=== PATIENT | female | born 1955 | race Caucasian/White ===

== ENCOUNTER → 2017-09-01 | Outpatient (CLI) | payer BC, SELFPAY | PROVIDERS: Visit Provider Internal Medicine Adolescent Medicine | DX: R53.83 Other fatigue (principal) | CPT/HCPCS: 36415; 80053; 82607; 84443; 85025 ==

== ENCOUNTER 2017-11-23 13:30 | Outpatient (RCR) | payer BC, SELFPAY | END 2017-11-23 13:31 | disposition home or self-care (01) | LOC: PT 13:30 | PROVIDERS: Family Provider Internal Medicine Adolescent Medicine; Visit Provider Orthopaedic Surgery Adult Reconstructive Orthopaedic Surgery | DX: Z96.642 Presence of left artificial hip joint (principal) | CPT/HCPCS: 97010; 97014; 97016; 97033; 97035; 97110; 97112; 97164; G0283 ==

== ENCOUNTER → 2017-12-18 10:31 | Outpatient (CLI) | payer BC, SELFPAY ==
--- NOTE | 2017-12-18 10:37 | MM_ITS ---
MM Dig screening mamm BI w/CAD CAD Screening ORDERING PHYSICIAN : Reji Dumont PATIENT AGE: 62 years GENDER: Female HISTORY of fibrocystic breast disease routine screening no hormones. No new complaints. Previous biopsy medial. munira areolar region left breast. COMPARISON: Outside studies have finally arrived from [facility]. Most useful: August 2015 mammogram & ultrasound studies. There is also a bilateral mammogram and breast ultrasound from April 2014 TECHNIQUE: Standard CC and MLO images were obtained. R2 CAD reviewed. FINDINGS:. Known fibrocystic breast disease Dense breast bilaterally which decreases sensitivity of mammography.. Multiple masses at left breast again seen . RIGHT BREAST: . Area A: Suggestion of vague 14 mm ovoid density at the deep right breast on MLO view. Possible cyst but not confirmed on other views.. There are other areas of vague nodularity, this dense breast. Recommend right breast ultrasound to further evaluate LEFT BREAST: Mass X: Bilobed mass, most certainly and likely cyst at 6 o'clock position. . (. 2015 outside studies identified large cyst same location at 6:00 which was subsequently aspirated, as evident on 2015 outside mammograms and ultrasound in available in PACS) On today's study the larger posterior component of this bilobed cyst measuring up to 2.5 cm x1.8 cm. (This larger cystic component is very slightly smaller than 2015 mammogram). The smaller component off the anterior aspect measuring up to 14 mm x 12 mm extending from anterior aspect of this bilobed mass. Mass Y: A new 1.5 cm well marginated probable cyst is seen today the superior left breast, 1 o'clock position ======IMPRESSION:====== 1. Bilateral Breast Ultrasound Recommended -to further evaluate densities both breast in this dense breasts.- With history of fibrocystic breast 2 ... LEFT BREAST. Most prominent findings on left : Mass X: Large bilobed mass inferior left breast 6 o'clock position. Most likely recurrence of cyst(s) seen on 2015 outside mammogram & ultrasound of which has. Mass Y: new 1.5 cm probable cyst superior breast 1 o'clock position 3.. RIGHT BREAST Possible 1.4 cm cyst deep right breast labeled area A. on MLO view . Questionable other areas of density, subtle nodularity in this dense breast would benefit from ultrasound survey as well BI-RADS Category: 0 Need Additional Imaging Evaluaiton RECOMMENDED FOLLOW-UP: IMM - IMMEDIATE FOLLOW-UP RECOMMENDED Bilateral breast ultrasound (A letter has been sent to the patient regarding results of the study.)
== END ==
PROVIDERS: Family Provider Internal Medicine Adolescent Medicine; PCP Internal Medicine Adolescent Medicine; Visit Provider Obstetrics & Gynecology Gynecology
DX: Z12.31 Encounter for screening mammogram for malignant neoplasm of breast (principal)
CPT/HCPCS: 77067

== ENCOUNTER → 2018-01-02 10:42 | Outpatient (CLI) | payer BC, SELFPAY ==
--- NOTE | 2018-01-02 10:49 | US_ITS ---
MM Dig mamm DX unilat RT CAD, US breast RT complete, US breast LT complete COMPARISON: 12/18/2017, 08/23/2015 INDICATION: Follow-up abnormal screening exam ORDERING PHYSICIAN: Madhuri Dominguez PATIENT AGE: 62 years TECHNIQUE: Spot compression views of the right breast along with bilateral breast ultrasound FINDINGS: Right breast: The asymmetric density in the deep upper aspect of the right breast appears to compress out as fibroglandular tissue. Right breast ultrasound: 4 mm complex cyst at 3:00. Small axillary nodes. No suspicious nodules Left breast ultrasound: 1.4 x 0.6 cm cyst at 2:00. Macro lobular 3 x 1.7 x 2 cm cyst at 6:00 corresponding to the bilobulated lesion on mammogram. No suspicious nodules evident. IMPRESSION: Bilateral breast cysts. No convincing evidence of malignancy BI-RADS Category: 2 Benign Finding(s) RECOMMENDED FOLLOW-UP: 1YR - 1 YEAR FOLLOW-UP (A letter has been sent to the patient regarding results of the study.)
== END ==
PROVIDERS: Family Provider Internal Medicine Adolescent Medicine; PCP Internal Medicine Adolescent Medicine; Visit Provider Nurse Practitioner Family
DX: R92.8 Other abnormal and inconclusive findings on diagnostic imaging of breast (principal)
CPT/HCPCS: 76641; 77065

== ENCOUNTER → 2018-04-05 08:20 | Outpatient (CLI) | payer BC, SELFPAY ==
[2018-04-05 11:01] LABS: Alanine Aminotransferase 37 U/L (12-78); Albumin Level 3.9 gm/dL (3.4-5.0); Albumin/Globulin Ratio 1.3 (1.1-1.8); Alkaline Phosphatase 117 U/L (46-116); Anion Gap 8.1 mEq/L (5-15); Aspartate Amino Transferase 18 U/L (15-37); Bilirubin,Total 0.4 mg/dL (0.2-1.0); Blood Urea Nitrogen 13 mg/dL (7-18); Calcium 9.5 mg/dL (8.5-10.1); Carbon Dioxide 30 mmol/L (21.0-32.0); Chloride 109 mmol/L (98-107); Chol/HDL Ratio 3.1 (1-3.5); Cholesterol 182 mg/dL (140-200); Creatinine,Serum 0.95 mg/dL (0.55-1.02); Estimated Glomerular Filt Rate 60 ml/min (>60); GFR (African American) 73 ML/MIN (>60); Globulin 2.9 gm/dl (1.3-3.2); Glucose 111 mg/dL (74-106); HDL Cholesterol 59 mg/dL (29-89); LDL Cholesterol 109 mg/dL (0-130); Potassium 4.1 mmoL/L (3.5-5.1); Sodium 143 mmol/L (136-145); Total Protein,Serum 6.8 gm/dL (6.4-8.2); Triglycerides 70 mg/dL (30-200); VLDL Cholesterol 14 mg/dL (0-40)
[2018-04-06 18:17] LABS: Vitamin D 25 Hydroxy 35.2 ng/mL (30.0-100.0)
== END ==
PROVIDERS: Visit Provider Nurse Practitioner Family
DX: E78.5 Hyperlipidemia, unspecified (principal); E55.9 Vitamin D deficiency, unspecified
CPT/HCPCS: 36415; 80053; 80061; 82652

== ENCOUNTER → 2018-10-08 09:02 | Outpatient (CLI) | payer BC, SELFPAY ==
[2018-10-08 09:17] LABS: Basophils % 0.8 % (0.1-2.0); Eosinophils # 0.1 K/mm3 (0.0-0.4); Hematocrit 41.6 % (37.0-47.0); Hemoglobin 13.6 g/dL (12.2-16.2); Lymphocytes # 2.1 K/mm3 (0.7-4.5); Lymphocytes % 46.1 % (10-50); Mean Corpuscular HGB Conc 32.6 g/dL (31.8-35.4); Mean Corpuscular Hemoglobin 30.7 pg (27.0-31.2); Mean Platelet Volume 6.6 fl (7.4-10.4); Monocytes # 0.3 K/mm3 (0.1-1.0); Monocytes % 6.7 % (1.7-9.3); Neutrophils # 1.9 K/mm3 (1.8-7.8); Neutrophils % 43.5 % (37.0-80.0); Platelet Count 245 K/mm3 (142-424); Red Blood Count 4.42 M/mm3 (4.20-5.40); Red Cell Distribution Width 12.9 % (11.5-17.5); White Blood Count 4.5 K/mm3 (4.8-10.8)
[2018-10-08 09:31] LABS: Hemoglobin A1C 5.7 % (0.0-7.0)
[2018-10-08 10:13] LABS: Alanine Aminotransferase 38 U/L (12-78); Albumin Level 3.9 gm/dL (3.4-5.0); Albumin/Globulin Ratio 1.4 (1.1-1.8); Alkaline Phosphatase 105 U/L (46-116); Aspartate Amino Transferase 20 U/L (15-37); Bilirubin,Total 0.7 mg/dL (0.2-1.0); Blood Urea Nitrogen 20 mg/dL (7-18); Calcium 9.3 mg/dL (8.5-10.1); Carbon Dioxide 27 mmol/L (21.0-32.0); Chloride 109 mmol/L (98-107); Chol/HDL Ratio 3.9 (1-3.5); Cholesterol 181 mg/dL (140-200); Estimated Glomerular Filt Rate 64 ml/min (>60); GFR (African American) 77 ML/MIN (>60); Globulin 2.7 gm/dl (1.3-3.2); Glucose 118 mg/dL (74-106); HDL Cholesterol 46 mg/dL (29-89); LDL Cholesterol 118 mg/dL (0-130); Sodium 144 mmol/L (136-145); Thyroid Stimulating Hormone 1.28 uIU/ml (0.358-3.740); Total Protein,Serum 6.6 gm/dL (6.4-8.2); Triglycerides 87 mg/dL (30-200); VLDL Cholesterol 17 mg/dL (0-40)
[2018-10-09 08:10] LABS: Vitamin D 25 Hydroxy 32.1 ng/mL (30.0-100.0)
[2018-10-09 16:17] LABS: Vitamin B12 1178 pg/mL (232-1245)
== END ==
PROVIDERS: Visit Provider Nurse Practitioner Family
DX: E78.5 Hyperlipidemia, unspecified (principal); E55.9 Vitamin D deficiency, unspecified; R53.81 Other malaise; R73.9 Hyperglycemia, unspecified
CPT/HCPCS: 36415; 80053; 80061; 82607; 82652; 83036; 84443; 85025

== ENCOUNTER → 2019-02-12 09:14 | Outpatient (CLI) | payer BC, SELFPAY ==
[2019-02-12 12:21] LABS: Hemoglobin A1C 5.2 % (0.0-7.0)
[2019-02-12 12:57] LABS: Alanine Aminotransferase 30 U/L (12-78); Albumin Level 4.1 gm/dL (3.4-5.0); Albumin/Globulin Ratio 1.5 (1.1-1.8); Alkaline Phosphatase 110 U/L (46-116); Anion Gap 14.6 mEq/L (5-15); Aspartate Amino Transferase 16 U/L (15-37); Bilirubin,Total 0.5 mg/dL (0.2-1.0); Blood Urea Nitrogen 18 mg/dL (7-18); Calcium 9.2 mg/dL (8.5-10.1); Carbon Dioxide 28 mmol/L (21.0-32.0); Chloride 106 mmol/L (98-107); Chol/HDL Ratio 2.8 (1-3.5); Cholesterol 158 mg/dL (140-200); Estimated Glomerular Filt Rate 56 ml/min (>60); GFR (African American) 68 ML/MIN (>60); Globulin 2.7 gm/dl (1.3-3.2); Glucose 108 mg/dL (74-106); HDL Cholesterol 57 mg/dL (29-89); LDL Cholesterol 90 mg/dL (0-130); Potassium 4.6 mmoL/L (3.5-5.1); Sodium 144 mmol/L (136-145); Total Protein,Serum 6.8 gm/dL (6.4-8.2); Triglycerides 54 mg/dL (30-200); VLDL Cholesterol 11 mg/dL (0-40)
== END ==
PROVIDERS: Visit Provider Nurse Practitioner Family
DX: E78.5 Hyperlipidemia, unspecified (principal); R73.9 Hyperglycemia, unspecified
CPT/HCPCS: 36415; 80053; 80061; 83036

== ENCOUNTER → 2019-06-21 08:32 | Outpatient (CLI) | payer OTHER, SELFPAY ==
--- NOTE | 2019-06-21 08:34 | MM_ITS ---
PROCEDURE: MM DIG SCREENING MAMM BI W/CAD CLINICAL INDICATION: screening There is no personal or family history of breast cancer. There has been a previous biopsy left breast for benign disease. COMPARISON: BC-MAMM DIAG BILAT DIG PNL from 08/25/2015 BU-US GUID CYST ASP PER LESION from 09/11/2015 [facility] MM Dig screening mamm BI w/CAD from 12/18/2017 DXRT MM Dig mamm DX unilat RT CAD from 01/02/2018 TECHNIQUE: Standard CC and MLO images were obtained. R2 CAD reviewed. FINDINGS: Prominent diffuse somewhat heterogenic fibroglandular densities are seen in each breast somewhat lessening the sensitivity of mammography. There is a spherical structure central portion left breast best seen on the CC projection likely the previously known cyst at this location which was aspirated. This most likely represents a shell of the previously aspirated cyst as it is much less dense than seen on the previous left mammogram 12/18/2017. There is no suspicious lesion and no suspicious there is a benign-appearing microcalcification right breast. IMPRESSION: Dense and heterogenic parenchymal pattern with no suspicious lesions seen. BI-RAD Category: 2 Benign Finding(s) FOLLOW-UP: 1YR 1 Year Follow-up (A letter has been sent to the patient regarding results of the study.) Dictated by: Dr. Joe Ansari MD 06/21/2019 11:[address] Joe Ansari MD in [place] 06/21/2019 11:33
== END ==
PROVIDERS: PCP Internal Medicine Adolescent Medicine; Referring Provider Nurse Practitioner Family; Visit Provider Nurse Practitioner Family
DX: Z12.31 Encounter for screening mammogram for malignant neoplasm of breast (principal)
CPT/HCPCS: 77067

== ENCOUNTER → 2019-07-20 08:56 | Outpatient (CLI) | payer OTHER, SELFPAY ==
[2019-07-20 11:37] LABS: Alanine Aminotransferase 24 U/L (12-78); Albumin Level 4.1 gm/dL (3.4-5.0); Albumin/Globulin Ratio 1.5 (1.1-1.8); Alkaline Phosphatase 113 U/L (46-116); Anion Gap 8.4 mEq/L (5-15); Aspartate Amino Transferase 17 U/L (15-37); Bilirubin,Total 0.5 mg/dL (0.2-1.0); Blood Urea Nitrogen 12 mg/dL (7-18); Calcium 9.1 mg/dL (8.5-10.1); Carbon Dioxide 31 mmol/L (21.0-32.0); Chloride 104 mmol/L (98-107); Chol/HDL Ratio 3.2 (1-3.5); Cholesterol 181 mg/dL (140-200); Creatinine,Serum 1.02 mg/dL (0.55-1.02); Estimated Glomerular Filt Rate 55 ml/min (>60); GFR (African American) 66 ML/MIN (>60); Globulin 2.8 gm/dl (1.3-3.2); Glucose 115 mg/dL (74-106); HDL Cholesterol 56 mg/dL (29-89); LDL Cholesterol 104 mg/dL (0-130); Potassium 4.4 mmoL/L (3.5-5.1); Sodium 139 mmol/L (136-145); Total Protein,Serum 6.9 gm/dL (6.4-8.2); Triglycerides 107 mg/dL (30-200); VLDL Cholesterol 21 mg/dL (0-40)
[2019-07-22 13:56] LABS: Vitamin D 25 Hydroxy 32.5 ng/mL (30.0-100.0)
== END ==
PROVIDERS: Visit Provider Nurse Practitioner Family
DX: E78.5 Hyperlipidemia, unspecified (principal); E55.9 Vitamin D deficiency, unspecified
CPT/HCPCS: 36415; 80053; 80061; 82652

== ENCOUNTER → 2020-06-23 07:50 | Outpatient (CLI) | payer OTHER, SELFPAY ==
--- NOTE | 2020-06-23 07:56 | MM_ITS ---
PROCEDURE: MM DIG SCREENING MAMM BI W/CAD Digital Breast Tomosynthesis Included CLINICAL INDICATION: SCREENING There is no personal or family history of breast cancer. There has been a previous biopsy left breast for benign disease. COMPARISON: MG [facility] MM Dig screening mamm BI w/CAD from 12/18/2017 MG DXRT MM Dig mamm DX unilat RT CAD from 01/02/2018 MG MM DIG SCREENING MAMM BI W/CAD from 06/21/2019 TECHNIQUE: Standard CC and MLO images and 3D Tomosynthesis was obtained. R2 CAD reviewed. FINDINGS: Again noted is a diffusely dense and heterogenic parenchymal pattern. Russel images are most helpful in this type of dense breast parenchyma. There has been some slight fatty involution of the breast parenchyma when compared to the 2 most recent studies. There is no new or suspicious lesion in either breast and no suspicious microcalcifications. There is a benign-appearing microcalcification right breast. IMPRESSION: Stable dense and heterogenic parenchymal pattern with no suspicious lesions seen BI-RAD Category: 2 Benign Finding(s) FOLLOW-UP: 1YR 1 Year Follow-up (A letter has been sent to the patient regarding results of the study.) Dictated by: Dr. Joe Ansari MD 06/23/2020 10:16 Dr. Joe Ansari MD in [place] 06/23/2020 10:16
== END ==
PROVIDERS: PCP Internal Medicine Adolescent Medicine; Visit Provider Nurse Practitioner Family
DX: Z12.31 Encounter for screening mammogram for malignant neoplasm of breast (principal)
CPT/HCPCS: 77063; 77067

== ENCOUNTER → 2020-10-04 09:19 | Outpatient (CLI) | payer OTHER, SELFPAY ==
[2020-10-04 10:35] LABS: Alanine Aminotransferase 23 U/L (12-78); Albumin Level 4.5 g/dl (3.5-5.0); Albumin/Globulin Ratio 1.7 (1.1-1.8); Alkaline Phosphatase 109 U/L (38-126); Anion Gap 14.4 mEq/L (5-15); Aspartate Amino Transferase 24 U/L (14-36); Bilirubin,Total 0.6 mg/dl (0.2-1.3); Blood Urea Nitrogen 13 mg/dl (7-17); Calcium 9.9 mg/dl (8.4-10.2); Carbon Dioxide 27 mmol/L (22.0-30.0); Chloride 105 mmol/L (98-107); Chol/HDL Ratio 3.5 (1-3.5); Cholesterol 180 mg/dl (140-200); Estimated Glomerular Filt Rate 56 ml/min (>60); GFR (African American) 68 ML/MIN (>60); Globulin 2.7 g/dL (1.3-3.2); Glucose 125 mg/dl (74-100); HDL Cholesterol 52 mg/dl (40-60); Potassium 4.4 mmoL/L (3.5-5.1); Sodium 142 mmol/L (136-145); Total Protein,Serum 7.2 g/dl (6.3-8.2); Triglycerides 185 mg/dl (30-150); VLDL Cholesterol 37 mg/dL (0-40)
[2020-10-04 10:46] LABS: Direct LDL Cholesterol 90.11 mg/dL (100-129)
[2020-10-04 10:49] LABS: 25-OH Vitamin D, Total 37.2 ng/mL (30-100)
== END ==
PROVIDERS: PCP Internal Medicine Adolescent Medicine; Visit Provider Nurse Practitioner Family
DX: E78.5 Hyperlipidemia, unspecified (principal); E55.9 Vitamin D deficiency, unspecified
CPT/HCPCS: 36415; 80053; 80061; 82306

== ENCOUNTER → 2020-10-05 10:54 | Outpatient (CLI) | payer OTHER, SELFPAY ==
[2020-10-05 11:51] LABS: Hemoglobin A1C 5.6 % (4.0-6.0)
== END ==
PROVIDERS: Visit Provider Pediatrics
DX: R73.9 Hyperglycemia, unspecified (principal)
CPT/HCPCS: 36415; 83036

== ENCOUNTER → 2020-11-10 11:08 | Outpatient (CLI) | payer OTHER, SELFPAY ==
[2020-11-10 12:05] LABS: Coronavirus 19 IgG Antibody Negative (Negative); Coronavirus 19 IgM Antibody Negative (Negative)
== END ==
PROVIDERS: Visit Provider Surgery
DX: Z01.818 Encounter for other preprocedural examination (principal); Z11.52 Encounter for screening for COVID-19; Z12.11 Encounter for screening for malignant neoplasm of colon
CPT/HCPCS: 36415; 86328

== ENCOUNTER 2020-11-12 09:30 | Day surgery (SDC) | payer OTHER, SELFPAY ==
[2020-11-10 14:09] VITALS: BMI 27.2
[2020-11-12 09:47] VITALS: BP 145/88; PULSE 97; RESP 18; TEMP 36.2; O2SAT 98
[2020-11-12 10:42] VITALS: O2SAT 98
--- NOTE | 2020-11-12 11:19 | HMH.SCOPE ---
- Procedure: Date: 11/12/20 Patient Date of :: 1955 Procedure Performed:: Colonoscopy with polypectomy Indications:: History of colon polyps Performing Provider:: Holden Yanes MD Referring Provider:: . Sedation:: Monitored anesthesia care Procedure:: After informed consent was obtained the patient was taken to the endoscopy suite. Sedation ensued after the patient was transferred to the left lateral decubitus position. Pulse, blood pressure, and oxygen saturation were monitored throughout the procedure. Digital rectal exam revealed no significant abnormality. The colonoscope was placed in position. The entire colon was evaluated. The colonoscope was carefully removed and the patient was transferred to recovery in stable condition. Please see findings and specimens below for detail. Findings:: Bowel preparation moderate to poor Hemorrhoidal tags Polyp at 60 cm Specimens:: Polyp at 60 cm (cold snare) Recommendations:: Timing of repeat colonoscopy is pending pathology but will likely be between 1-2 years secondary to limitations in bowel preparation. Complications:: Moderate to poor bowel preparation Estimated blood obtained (mL): 1
[2020-11-12 11:20] VITALS: BP 93/57; PULSE 87; RESP 18; TEMP 36.8; O2SAT 92
--- NOTE | 2020-11-12 11:23 | HMH.ANESCL ---
[facility] Anesthesia Checklist - Structural Data Admitted From: Home Planned Operative Procedure/s: colonoscopy Consent for Planned Operative Procedure(s) Verified: Yes - Airway Assessment C-Spine Mobility Assessed: Yes TMJ Mobility Assessed: Yes Dentition: Good Dentition - Neurological Assessment Level of Consciousness: Awake, Alert, Appropriate - Anesthesia Plan Anesthesia Risk discussed: Yes Anesthesia Plan: Verified ASA Class: II Anesthesia Type: MAC [facility] History I have reviewed the patient's past medical history: Yes Medical History: Denies:: Cancer, Diabetes Mellitus Type 1, Diabetes Mellitus Type 2, MRSA, Seizures *Have you ever received a pneumonia vaccine?: Yes *Have you received a flu vaccine this season?: Yes Anesthesia experience/problems:: none Laterality Cases: Left: Total Hip Replacement, Bilateral: Tonsillectomy Other Surgeries: Yes: Cholecystectomy, Colonoscopy, Colon Resection, Hysterectomy-Total, Tubal Ligation Amputation: No Fractures: No - *Social History Last grade of school completed: Some college Smoking Status: Former smoker Alcohol Intake: current Alcohol Intake Frequency:: a few times a week Substance Use Type: denies use *Occupational Status:: retired Housing: house Household Members: spouse *Travel in the last 8 weeks: None Family Hx:: No significant family history
[2020-11-12 11:35] VITALS: BP 92/48; PULSE 80; RESP 18; O2SAT 95
[2020-11-12 11:50] VITALS: BP 121/72; PULSE 77; RESP 18; O2SAT 97
== END 2020-11-12 11:51 | disposition home or self-care (01) ==
LOC: OUTP 09:31
PROVIDERS: PCP Internal Medicine Adolescent Medicine; Visit Provider Surgery
PROC: 0DJD8ZZ Inspection of Lower Intestinal Tract, Via Natural or Artificial Opening Endoscopic (ICD-10-PCS; CPT 45385; principal; 2020-11-12 10:30)
DX: Z12.11 Encounter for screening for malignant neoplasm of colon (principal); K63.5 Polyp of colon; Z86.010 Personal history of colon polyps; Z90.49 Acquired absence of other specified parts of digestive tract; Z87.19 Personal history of other diseases of the digestive system; Z88.8 Allergy status to other drugs, medicaments and biological substances; Z79.899 Other long term (current) drug therapy
CPT/HCPCS: 45385

== ENCOUNTER → 2021-02-10 16:41 | Outpatient (CLI) | payer OTHER, SELFPAY ==
--- NOTE | 2021-02-10 16:45 | XR_ITS ---
PROCEDURE: XR KNEE LT 4V CLINICAL INDICATION: LT ANTERIOR KNEE PAIN COMPARISON: No exams were available for comparison FINDINGS: No fracture or dislocation. No lytic or blastic change. There is normal mineralization. The joint spaces are well-preserved. No significant degenerative/arthritic changes. No erosive changes evident. Other findings:None. IMPRESSION: No acute findings. Dictated by: Jack Ulloa MD 02/10/2021 17:25 Jack Ulloa MD in [place] 02/10/2021 17:25
== END ==
PROVIDERS: PCP Nurse Practitioner Family; Visit Provider Nurse Practitioner Family
DX: M25.562 Pain in left knee (principal)
CPT/HCPCS: 73564

== ENCOUNTER → 2021-06-28 07:52 | Outpatient (CLI) | payer OTHER, SELFPAY ==
--- NOTE | 2021-06-28 07:57 | MM_ITS ---
PROCEDURE: MM DIG SCREENING MAMM BI W/CAD Digital Breast Tomosynthesis Included CLINICAL INDICATION: SCREENING There is no personal or family history of breast cancer. There has been a previous biopsy left breast for benign disease. COMPARISON: MG DXRT MM Dig mamm DX unilat RT CAD from 01/02/2018 MG MM DIG SCREENING MAMM BI W/CAD from 06/21/2019 MG MM DIG SCREENING MAMM BI W/CAD from 06/23/2020 TECHNIQUE: Standard CC and MLO images and 3D Tomosynthesis was obtained. R2 CAD reviewed. FINDINGS: Prominent diffuse heterogenic fibroglandular densities are seen throughout both breast and the findings are bilateral and symmetrical. Tomosynthesis imaging is very helpful in this type of dense breast parenchyma. There is a benign-appearing microcalcification right breast. There is no new or suspicious lesion in either breast and no suspicious microcalcifications. IMPRESSION: Diffusely dense parenchymal pattern with no suspicious lesions seen BI-RAD Category: 1 Negative FOLLOW-UP: 1YR 1 Year Follow-up (A letter has been sent to the patient regarding results of the study.) Dictated by: Dr. Joe Ansari MD 06/30/2021 11:00 Dr. Joe Ansari MD in [place] 06/30/2021 11:00
== END ==
PROVIDERS: PCP Nurse Practitioner Family; Visit Provider Nurse Practitioner Family
DX: Z12.31 Encounter for screening mammogram for malignant neoplasm of breast (principal)
CPT/HCPCS: 77063; 77067

== ENCOUNTER → 2021-08-16 06:04 | Outpatient (CLI) | payer OTHER, SELFPAY ==
--- NOTE | 2021-08-16 06:34 | CT_ITS ---
PROCEDURE: CT LUNG SCREENING CLINICAL INDICATION: LUNG SCREENING COMPARISON: No exams were available for comparison TECHNIQUE: The exam was performed on a GE Sevence Speed [address] scanner using 2.90 mGy CTDI. A low dose helical CT CHEST was performed on a multi-detector scanner. All CT scans at the facility use one or more dose reduction, viz: automated exposure control, ma/kV adjustment per patient size (including targeted exams where dose is matched to indication, i.e. head), or iterative reconstruction technique. The LDCT was performed in a facility that meets the criteria for the screening program. Data regarding this exam was submitted to ACR which is an approved registry. The order for this exam indicates that it came as a result of a lung cancer screening counseling shard decision-making visit that included all the elements required of such a visit including smoking cessation. The radiologist interpreting this exam meets the CMS criteria for the LDCT lung cancer screening program. The exam is reported using the Lung-RADS classification scale and reported to the ACR registry. NOTE: This study was performed for the specific purposes of lung cancer screening and is not an alternative to diagnostic chest CT. RADIATION DOSE: CTDI vol(CT dose Index-volume) = 2.90mG DLP (Dose Length Product) = 98.21 mGcm FINDINGS: COPD changes with scattered areas of scarring. There are a few scattered parenchymal and subpleural opacities 2 mm or less nonspecific. No suspicious nodules are apparent. There is mild bronchial thickening. No effusions or infiltrates. OTHER FINDINGS: No other pertinent findings evident. IMPRESSION: Lung-RADS Category 2 Benign Appearance or Behavior Follow-up: Continue annual screening with LDCT in 12 months Dictated by: Jack Ulloa MD 08/30/2021 10:18 Jack Ulloa MD in [place] 08/30/2021 10:18
== END ==
PROVIDERS: PCP Nurse Practitioner Family; Visit Provider Nurse Practitioner Family
DX: Z87.891 Personal history of nicotine dependence (principal); Z12.2 Encounter for screening for malignant neoplasm of respiratory organs
CPT/HCPCS: 71271

== ENCOUNTER → 2022-02-01 09:47 | Outpatient (CLI) | payer OTHER, SELFPAY ==
--- NOTE | 2022-02-01 | CA_ITS ---
APPROVED REPORT Exam: Exercise Treadmill Technologist: Avril Hernandez, Ht: 5 ft 10 in Wt: 190 lbs BSA: 2.04 m2 HR: 93 bpm BP: 138/77 mmHg Stress Test Details Test: Fazal HR Resting HR: 93 bpm Max Heart Rate (APMHR): 156.150174 bpm Max HR Achieved: 141 bpm Target HR (85% APMHR): 132.205658 bpm % of APMHR: 90.38 Recovery HR: 96 bpm BP Resting BP: 138/77 mmHg Max BP: 183/72 mmHg Recovery BP: 138.0/79.0 mmHg ECG Resting ECG: NSR 102bpm Clinical Exercise duration: 04:18 min Highest Stage Achieved: I Exercise capacity: 4.6 METs Stress ECG Conclusion Exercised 4:18 in Stage I of Fazal Protocol (stage I held to completion). Stopped due to dizziness. Max HR: 141 % of PM: 90% Max BP: 183/72 MET's: 4.6 Test stopped due to: Dizziness Symptoms: SOA/Dizziness. No CP. Arrhythmias/Ectopy: None ST-T Changes: W/in normal ST response to exercise. In late recovery there is 0.5 to 1mm of horizontal [address] depression inferiorly. Conclusion: Acute onset of dizziness during exercise. EKG changes in late recovery are suggestive dut not diagnostic of ischemia. GXT only (no imaging) Test Summary REST . . . . . . . Standing REST . . . . . . . Sitting REST 02:43 0.0 0.0 93 . 138/ 77 . . Stage 1 01:00 10.0 1.7 119 . . . . Stage 1 02:00 10.0 1.7 128 . . . . Stage 1 . . . . . . . Stage held Stage 1 03:00 10.0 1.7 134 . 150/ 70 . . Stage 1 04:00 10.0 1.7 139 . 150/ 70 . . Stage 1 . . . . . . . Stage resumed Stage 1 04:18 10.0 1.7 140 . 150/ 70 . Stop exercise at 04:18 RECOVERY 01:00 0.0 0.0 129 . . . . RECOVERY 02:00 0.0 0.0 105 . . . . RECOVERY 03:00 0.0 0.0 98 . 183/ 72 . . RECOVERY 04:00 0.0 0.0 93 . 153/ 73 . . RECOVERY 05:00 0.0 0.0 94 . 152/ 79 . . RECOVERY 06:00 0.0 0.0 93 . 151/ 75 . . RECOVERY 07:00 0.0 0.0 91 . 151/ 75 . . RECOVERY 08:00 0.0 0.0 95 . 138/ 79 . . RECOVERY 09:00 0.0 0.0 97 . 138/ 79 . . RECOVERY 09:24 0.0 0.0 98 . 138/ 79 . . Electronically signed by : Alex Antonio MD 02/01/2022 20:29:39
== END ==
PROVIDERS: PCP Nurse Practitioner Family; Visit Provider Internal Medicine Adolescent Medicine
DX: R06.09 Other forms of dyspnea (principal); R00.2 Palpitations; R42 Dizziness and giddiness
CPT/HCPCS: 93017; 93306

== ENCOUNTER → 2022-02-04 12:37 | Outpatient (CLI) | payer OTHER, SELFPAY ==
--- NOTE | 2022-02-04 12:51 | CA_ITS ---
APPROVED REPORT EXAM: Comprehensive 2D, Doppler, and color-flow Echocardiogram [employer] Intern[employer]: Jessica Gutierrez RVT Ht: 5 ft 10 in Wt: 190lbs BSA: 2.04 BP: 128/79 mmHg Indications: PALPS,MORALES,HLD TDS-LIMITED WINDOWS 2D Dimensions IVSd 0.49 cm F: 0.6-1.0 LVEF (Visual) 55.20 % PWd 0.53 cm F: 0.6 - 1.0 LA Volume 22.10 mL LVDd 3.41 cm F: 3.9 - 5.3 LA Volume Index 10.83 mL/m2 (M/F) 16-34 LVDs 2.46 cm F: 2.2 - 3.5 LVOT 2.04 cm (M/F) 1.5-2.5 M-Mode Dimensions LA Diam 3.28 cm (1.9-4.0) Ao Diam 2.63 cm (2.0-3.7) TAPSE 1.72 (<1.7) LV Diastology E Decel Time 200.00 (160-240 msec) E/A Ratio 0.9 MED E' 10.40 (< 7 cm/sec) E'/MED E' Ratio 8.30 (>14) LAT E' 11.00 (<10 cm/sec) E/LAT E' Ratio 7.85 (>14) Aortic Valve AO Peak GR. 5.70 mmHg Mitral Valve MV E Max Víctor. 86.00 (40-130 cm/s) MV A Velocity 98.00 (40-130 cm/s) E/A Ratio 0.89 MV Decel. Time 200.00 (160-240 ms) MV PHT 59.00 ms Pulmonary Valve PV Peak Velocity 51.00 (50-150 cm/s) Tricuspid Valve TR P. Velocity 212.00 cm/s RAP Estimate 10.00 mmHg RVSP 28.00 mmHg Left Ventricle Technically difficult study because of the patient factors and poor acoustic windows. Left atrium is mildly enlarged, left ventricle is normal size, mild concentric left ventricular hypertrophy, estimated ejection fraction 55% with no regional wall motion abnormality, Doppler evidence of impaired LV relaxation, without tissue Doppler evidence of raise left atrial pressure. Right Ventricle Right atrium and right ventricle are normal size and contractility. Aortic Valve Aortic valve is minimally thickened and fibrosed without aortic stenosis or aortic insufficiency. Mitral Valve Mitral valve is grossly normal, there is trace mitral regurgitation. Tricuspid Valve Tricuspid valve grossly normal, there is trace tricuspid regurgitation, tricuspid regurgitation jet velocity is inadequate for calculation of the right ventricular systolic pressure. Pulmonic Valve Pulmonic valve is poorly visualized. Great Vessels Aortic root is normal size. Inferior vena cava normal size with normal inspiratory collapse. Pericardium No significant pericardial effusion noted. Conclusion 1. Mildly enlarged left atrium, normal left ventricular size, mild concentric left ventricular hypertrophy, estimated ejection fraction 55% with no regional wall motion abnormality, Doppler evidence of impaired LV relaxation seen without tissue Doppler evidence of raise left atrial pressure. 2. Trace mitral and tricuspid regurgitation. 3. No significant pericardial effusion. 4. Inferior vena cava is normal size with normal inspiratory collapse. Electronically signed by : Alex Antonio MD 02/06/2022 06:35:12
== END ==
PROVIDERS: PCP Nurse Practitioner Family; Visit Provider Nurse Practitioner Family
DX: R06.09 Other forms of dyspnea (principal); R00.2 Palpitations
CPT/HCPCS: 93306

== ENCOUNTER → 2022-06-28 14:09 | Outpatient (POV) | payer MEDICARE, SELFPAY | PROVIDERS: Visit Provider Dermatology | DX: Z00.00 Encounter for general adult medical examination without abnormal findings (principal) ==

== ENCOUNTER → 2022-06-30 09:24 | Outpatient (CLI) | payer MEDICARE, SELFPAY ==
--- NOTE | 2022-06-30 09:28 | MM_ITS ---
PROCEDURE INFORMATION: Exam: MG Bilateral Screening 3D Mammography Exam date and time: 06/30/2022 9:25 AM Age: 67 years old Clinical indication: Screening examination TECHNIQUE: Imaging protocol: Bilateral Screening tomosynthesis and 2D mammography including computer-aided detection (CAD) when performed. COMPARISON: 1. MG MM DIG SCREENING MAMM BI W/CAD 06/28/2021 8:00 AM 2. MG MM DIG SCREENING MAMM BI W/CAD 06/23/2020 8:04 AM 3. MG MM DIG SCREENING MAMM BI W/CAD 06/21/2019 8:59 AM FINDINGS: MAMMOGRAPHY: Breast composition: The breasts are heterogeneously dense, which may obscure small masses. Mass: No suspicious masses. Architectural distortion: No suspicious distortion. Calcifications: No suspicious calcifications. Asymmetric density: None. Skin thickening: None. Axillary adenopathy: None. IMPRESSION: No mammographic evidence of malignancy. Annual screening is recommended unless otherwise clinically indicated. ASSESSMENT: BI-RADS Category 1: Negative
== END ==
PROVIDERS: PCP Nurse Practitioner Family; Visit Provider Nurse Practitioner Family
DX: Z12.31 Encounter for screening mammogram for malignant neoplasm of breast (principal)
CPT/HCPCS: 77063; 77067

== ENCOUNTER → 2022-07-04 08:39 | Outpatient (CLI) | payer MEDICARE, SELFPAY ==
--- NOTE | 2022-07-04 09:10 | XR_ITS ---
FINAL REPORT TECHNIQUE: Bone densitometry calculations of the lumbar spine, forearm and hip were obtained. CLINICAL HISTORY: . post menopausal screening FINDINGS: DEXA BONE DENSITY AXIAL SKELETON Using L1-4, the bone mineral density of the spine is 1.093 g/cm2, corresponding to T-score of 0.4. Normal bone mineral density. Using the right hip, the bone mineral density of the femoral neck is 0.735 g/cm2, corresponding to a T-score of -1.0. Normal bone mineral density. Using the left forearm, the bone mineral density of the distal 1/3 is 0.611 g/cm2, corresponding to a T-score of -1.4. Osteopenia. NOTE: T-score: Standard deviation compared with peak bone mass of young adult mean. *Following the recommendations of the International Society of Bone densitometry, classification of hip BMD is based on the lower of two T-scores; total hip or femoral neck. IMPRESSION: Diminished bone mineral density of the left forearm consistent with osteopenia. Normal bone mineral density of the lumbar spine and right hip. Reviewed, Interpreted and Dictated by Cody Kramer III, MD Transcribed by Cris Cruz Authenticated and [facility]
== END ==
PROVIDERS: PCP Nurse Practitioner Family; Visit Provider Nurse Practitioner Family
DX: Z78.0 Asymptomatic menopausal state (principal)
CPT/HCPCS: 77080

== ENCOUNTER → 2022-08-09 10:45 | Outpatient (POV) | payer MEDICARE, SELFPAY | PROVIDERS: Visit Provider Dermatology | DX: Z00.00 Encounter for general adult medical examination without abnormal findings (principal) ==

== ENCOUNTER 2022-12-08 08:55 | Day surgery (SDC) | payer MEDICARE, SELFPAY ==
[2022-11-29 14:25] VITALS: BMI 28.7
[2022-12-08 09:15] VITALS: BP 161/92; PULSE 96; RESP 18; TEMP 36.4; O2SAT 96
[2022-12-08 09:47] VITALS: O2SAT 98
--- NOTE | 2022-12-08 10:05 | HMH.SCOPE ---
Procedure: Date: 12/08/22 Patient Date of :: 1955 Procedure Performed:: Screening colonoscopy Indications:: History of polyps Performing Provider:: Murray Boogie MD Referring Provider:: Gianfranco Wynn MD Sedation:: Propofol Procedure:: After placing the patient in the left lateral decubitus position, the colonoscopy was gently inserted into the rectum and under direct visualization advanced to the cecum which was identified by transillumination in the right lower quadrant, identification of the ileocecal valve, appendiceal orifice, and cecal strap. Color, texture, mucosa, and anatomy of the colon were carefully examined with the scope. Findings:: Anal canal: normal Rectum: normal Sigmoid colon: normal without polyps or inflammatory changes Descending colon: normal without polyps or inflammatory changes Splenic flexure: normal Transverse colon: normal without polyps or inflammatory changes Hepatic flexure: normal Ascending colon: normal without polyps or inflammatory changes Cecum: normal Terminal ileum: not visualized Impression: Normal colonoscopy Recommendations:: Follow up examination in about FIVE years or so, sooner if clinically indicated. Complications:: None Estimated blood obtained (mL): 0
[2022-12-08 10:10] VITALS: BP 135/81; PULSE 86; RESP 16; TEMP 36.1; O2SAT 90
[2022-12-08 10:20] VITALS: BP 117/73; PULSE 83; RESP 18; O2SAT 92
[2022-12-08 10:30] VITALS: BP 119/59; PULSE 86; RESP 18; O2SAT 94
== END 2022-12-08 10:52 | disposition home or self-care (01) ==
PROVIDERS: PCP Nurse Practitioner Family; Visit Provider Internal Medicine Gastroenterology
PROC: 0DJD8ZZ Inspection of Lower Intestinal Tract, Via Natural or Artificial Opening Endoscopic (ICD-10-PCS; CPT 45378; principal; 2022-12-08 10:00)
DX: Z12.11 Encounter for screening for malignant neoplasm of colon (principal); Z86.010 Personal history of colon polyps; Z79.899 Other long term (current) drug therapy
CPT/HCPCS: G0105

== ENCOUNTER → 2023-06-06 09:23 | Outpatient (POV) | payer SELFPAY | PROVIDERS: Visit Provider Dermatology | DX: Z00.00 Encounter for general adult medical examination without abnormal findings (principal) ==

== ENCOUNTER → 2023-07-03 10:09 | Outpatient (CLI) | payer MEDICARE, SELFPAY ==
--- NOTE | 2023-07-03 10:13 | MM_ITS ---
PROCEDURE INFORMATION: Exam: MG Bilateral Screening 3D Mammography Exam date and time: 07/03/2023 10:01 AM Age: 68 years old Clinical indication: Screening examination TECHNIQUE: Imaging protocol: Bilateral Screening tomosynthesis and 2D mammography including computer-aided detection (CAD) when performed. COMPARISON: 1. MG MM DIG SCREENING MAMM BI W/CAD 06/30/2022 9:25 AM 2. MG MM DIG SCREENING MAMM BI W/CAD 06/28/2021 8:00 AM FINDINGS: MAMMOGRAPHY: Breast composition: The breasts are heterogeneously dense, which may obscure small masses. Mass: 0.8 cm ovoid mass in the posterior third of the left central breast slightly superior and slightly lateral to the nipple 1 Architectural distortion: None. Calcifications: No suspicious calcifications. Asymmetric density: None. Skin thickening: None. Axillary adenopathy: None. IMPRESSION: Patient to be recalled for left breast ultrasound for further evaluation of a left breast mass. ASSESSMENT: BI-RADS Category 0: Incomplete- Need Additional Imaging Evaluation and/or Prior Mammograms for Comparison
== END ==
PROVIDERS: PCP Nurse Practitioner Family; Visit Provider Nurse Practitioner Family
DX: Z12.31 Encounter for screening mammogram for malignant neoplasm of breast (principal)
CPT/HCPCS: 77063; 77067

== ENCOUNTER → 2023-07-18 13:15 | Outpatient (CLI) | payer MEDICARE, OTHER, SELFPAY ==
--- NOTE | 2023-07-18 13:21 | US_ITS ---
PROCEDURE INFORMATION: Exam: US Left Breast, Complete Exam date and time: 07/18/2023 1:31 PM Age: 68 years old Clinical indication: Patient recalled for further evaluation of a left breast mass TECHNIQUE: Imaging protocol: Complete ultrasound of all four quadrants of the left breast and the retroareolar regions, including ultrasound of the axilla when performed. COMPARISON: BREASTLT US breast LT complete 01/02/2018 11:08 AM FINDINGS: Breast: Sonographic images of the left breast including the retroareolar region, all 4 quadrants and the axilla do not demonstrate any solid masses. Few scattered subcentimeter cysts are present. The 0.8 cm mass in the deep left central breast slightly superior and slightly lateral to the nipple is not seen on sonography. The mass is well-circumscribed on mammography and probably benign in etiology. No architectural distortion or acoustical shadowing. No skin thickening or axillary adenopathy. IMPRESSION: Probably benign mammographically visible subcentimeter mass in the deep left central breast. A six-month follow-up diagnostic left mammogram is recommended to ensure stability over time ASSESSMENT: BI-RADS Category 3: Probably benign
== END ==
PROVIDERS: PCP Nurse Practitioner Family; Visit Provider Nurse Practitioner Family
DX: R92.8 Other abnormal and inconclusive findings on diagnostic imaging of breast (principal)
CPT/HCPCS: 76641

== ENCOUNTER → 2023-07-19 20:22 | Outpatient (CLI) | payer MEDICARE, OTHER, SELFPAY | PROVIDERS: PCP Nurse Practitioner Family; Visit Provider Nurse Practitioner Family | DX: G47.31 Primary central sleep apnea (principal) | CPT/HCPCS: 95811 ==

== ENCOUNTER → 2023-08-18 15:08 | Outpatient (CLI) | payer MEDICARE, SELFPAY ==
[2023-08-18 16:19] LABS: Basophils # 0.1 K/mm3 (0-0.2); Basophils % 1.2 % (0.1-2.0); Eosinophils # 0.1 K/mm3 (0.0-0.4); Eosinophils % 1.4 % (0.1-12.0); Hematocrit 41.3 % (37.0-47.0); Lymphocytes # 2.6 K/mm3 (0.7-4.5); Lymphocytes % 40.2 % (10-50); Mean Corpuscular HGB Conc 33.8 g/dL (31.8-35.4); Mean Corpuscular Hemoglobin 30.4 pg (27.0-31.2); Mean Corpuscular Volume 89.8 fl (81-99); Mean Platelet Volume 8.4 fl (7.4-10.4); Monocytes # 0.5 K/mm3 (0.1-1.0); Monocytes % 7.8 % (1.7-9.3); Neutrophils # 3.2 K/mm3 (1.8-7.8); Neutrophils % 49.4 % (37.0-80.0); Platelet Count 276 K/mm3 (142-424); Red Cell Distribution Width 12.9 % (11.5-17.5); White Blood Count 6.4 K/mm3 (4.8-10.8)
[2023-08-18 17:03] LABS: Iron 77 ug/dL (37-170)
[2023-08-18 17:30] LABS: Total Iron Binding Capacity 281 ug/dL (265-497)
[2023-08-18 17:38] LABS: Ferritin 98.6 ng/ml (11.1-264)
== END ==
PROVIDERS: PCP Nurse Practitioner Family; Visit Provider Nurse Practitioner Family
DX: E83.10 Disorder of iron metabolism, unspecified (principal); G47.61 Periodic limb movement disorder; G47.33 Obstructive sleep apnea (adult) (pediatric)
CPT/HCPCS: 36415; 82728; 83540; 83550; 85025

== ENCOUNTER 2023-10-27 06:39 | Outpatient (CLI) | payer MEDICARE, OTHER, SELFPAY ==
--- NOTE | 2023-10-27 06:50 | CT_ITS ---
FINAL REPORT CLINICAL HISTORY: HX OF NICOTINE DEPENDENCE FORMER SMOKER PT QUIT 12 YEAR AGO, 1.5PPD X30 YEARS WHEN SMOKING FINDINGS: CTDI vol (mGy): 2.90 DLP: 89.[address] images of the chest were obtained using the low-dose protocol for screening. There is no evidence of mediastinal or hilar mass or adenopathy. No axillary mass or adenopathy is identified. On the lung window images, no pulmonary mass or suspicious nodule is identified. There is mild chronic scarring in the posterior lung bases. IMPRESSION: Lung RADS category 1 . Recommend 12 month followup low-dose CT for further evaluation. Reviewed, Interpreted and Dictated by Dionicio Navarro MD Transcribed by Luisana Michael Authenticated and [facility]
== END 2023-10-27 23:59 ==
PROVIDERS: PCP Nurse Practitioner Family; Visit Provider Nurse Practitioner Family
DX: Z87.891 Personal history of nicotine dependence (principal)
CPT/HCPCS: 71271

== ENCOUNTER → 2023-11-01 20:16 | Outpatient (CLI) | payer MEDICARE, SELFPAY | PROVIDERS: PCP Nurse Practitioner Family; Visit Provider Nurse Practitioner Family | DX: G47.33 Obstructive sleep apnea (adult) (pediatric) (principal); G47.31 Primary central sleep apnea; G47.61 Periodic limb movement disorder | CPT/HCPCS: 95811 ==

== ENCOUNTER 2023-12-29 14:16 | Outpatient (CLI) | payer MEDICARE, SELFPAY ==
--- NOTE | 2023-12-29 14:18 | MM_ITS ---
PROCEDURE INFORMATION: Exam: MG Left Diagnostic Breast Tomosynthesis Exam date and time: 12/29/2023 2:28 PM Age: 68 years old Clinical indication: Short-term radiographic followup; Left breast; mass TECHNIQUE: Imaging protocol: Left Diagnostic tomosynthesis and 2D mammography including computer-aided detection (CAD) when performed. Unilateral or bilateral exam. COMPARISON: 1. MG MM DIG SCREENING MAMM BI W/CAD 07/03/2023 10:01 AM 2. MG MM DIG SCREENING MAMM BI W/CAD 06/30/2022 9:25 AM FINDINGS: MAMMOGRAPHY: Breast composition: The breasts are heterogeneously dense, which may obscure small masses. Breast mammogram findings: There is no stellate mass, architectural distortion or suspicious microcalcifications to suggest malignancy. Stable 0.8 cm mass in the deep left central breast. This is best seen on tomographic images. No skin thickening or axillary adenopathy. IMPRESSION: Stable probably benign left central breast mass compared to prior mammogram dated 07/03/2023. A six-month follow-up diagnostic bilateral mammogram is recommended for continued close surveillance of the left-sided mass as well as part of an annual screening schedule ASSESSMENT: BI-RADS Category 3: Probably benign.
== END 2023-12-29 23:59 | disposition home or self-care (01) ==
LOC: RAD 14:16
PROVIDERS: PCP Nurse Practitioner Family; Visit Provider Nurse Practitioner Family
DX: R92.8 Other abnormal and inconclusive findings on diagnostic imaging of breast (principal)
CPT/HCPCS: 77061; 77065; G0279

== ENCOUNTER 2024-03-20 08:58 | Outpatient (CLI) | payer MEDICARE, OTHER, SELFPAY ==
[2024-03-20 09:22] LABS: Basophils # 0.1 K/mm3 (0-0.2); Basophils % 1.5 % (0.1-2.0); Eosinophils # 0.2 K/mm3 (0.0-0.4); Eosinophils % 2.4 % (0.1-12.0); Hematocrit 40.5 % (37.0-47.0); Hemoglobin 13.5 g/dL (12.2-16.2); Lymphocytes # 1.9 K/mm3 (0.7-4.5); Lymphocytes % 30.3 % (10-50); Mean Corpuscular HGB Conc 33.3 g/dL (31.8-35.4); Mean Corpuscular Hemoglobin 30.7 pg (27.0-31.2); Mean Corpuscular Volume 92.3 fl (81-99); Mean Platelet Volume 7.6 fl (7.4-10.4); Monocytes # 0.4 K/mm3 (0.1-1.0); Monocytes % 6.2 % (1.7-9.3); Neutrophils # 3.8 K/mm3 (1.8-7.8); Neutrophils % 59.5 % (37.0-80.0); Platelet Count 284 K/mm3 (142-424); Red Blood Count 4.38 M/mm3 (4.20-5.40); Red Cell Distribution Width 13.2 % (11.5-17.5); White Blood Count 6.3 K/mm3 (4.8-10.8)
[2024-03-20 10:09] LABS: Alanine Aminotransferase 45 U/L (12-78); Albumin Level 4.2 g/dl (3.5-5.0); Albumin/Globulin Ratio 1.8 (1.1-1.8); Alkaline Phosphatase 96 U/L (38-126); Aspartate Amino Transferase 35 U/L (14-36); Bilirubin,Total 0.7 mg/dl (0.2-1.3); Blood Urea Nitrogen 14 mg/dl (7-17); Calcium 9.6 mg/dl (8.4-10.2); Carbon Dioxide 30 mmol/L (22.0-30.0); Chloride 105 mmol/L (98-107); Chol/HDL Ratio 3.9 (1-3.5); Cholesterol 166 mg/dl (140-200); Estimated Glomerular Filt Rate 63 ml/min (>60); GFR (African American) 76 ML/MIN (>60); Globulin 2.3 g/dL (1.3-3.2); Glucose 123 mg/dl (74-100); HDL Cholesterol 43 mg/dl (40-60); Sodium 141 mmol/L (136-145); Total Protein,Serum 6.5 g/dl (6.3-8.2); Triglycerides 136 mg/dl (30-150); VLDL Cholesterol 27 mg/dL (0-40)
[2024-03-20 10:20] LABS: Direct LDL Cholesterol 95.68 mg/dL (100-129)
[2024-03-20 11:22] LABS: Hemoglobin A1C 5.9 % (4.0-6.0)
== END 2024-03-20 23:59 | disposition home or self-care (01) ==
LOC: LAB 09:00
PROVIDERS: PCP Nurse Practitioner Family; Visit Provider Nurse Practitioner Family
DX: E78.5 Hyperlipidemia, unspecified (principal); R73.01 Impaired fasting glucose; R19.7 Diarrhea, unspecified
CPT/HCPCS: 36415; 80053; 80061; 83036; 85025

== ENCOUNTER 2024-06-18 13:19 | Outpatient (CLI) | payer MEDICARE, OTHER, SELFPAY ==
--- NOTE | 2024-06-18 13:22 | MM_ITS ---
PROCEDURE INFORMATION: Exam: MG Bilateral Diagnostic Breast Tomosynthesis Exam date and time: 06/18/2024 1:09 PM Age: 69 years old Clinical indication: Follow-up from prior for probably benign left breast mass. TECHNIQUE: Imaging protocol: Bilateral Diagnostic tomosynthesis and 2D mammography including computer-aided detection (CAD) when performed. Unilateral or bilateral exam. COMPARISON: 1. MG MM DIG MAMM DX UNILAT LT CAD 12/29/2023 2:28 PM 2. MG MM DIG SCREENING MAMM BI W/CAD 07/03/2023 10:01 AM FINDINGS: MAMMOGRAPHY: Breast composition: The breasts are heterogeneously dense, which may obscure small masses. Breast mammogram findings: Bilateral full field CC and MLO as well as left breast spot compression tomosynthesis views were obtained. Mass: Stable circumscribed 0.8 cm mass in the central left breast at posterior depth. Architectural distortion: None. Calcifications: No suspicious calcifications. Asymmetric density: None. Skin thickening: None. Axillary adenopathy: None. IMPRESSION: Left breast mass is stable since 07/03/2023 and probably benign. Recommend six-month follow-up left breast diagnostic mammogram to ensure stability. ASSESSMENT: BI-RADS Category 3: Probably benign.
== END 2024-06-18 23:59 | disposition home or self-care (01) ==
LOC: RAD 13:19
PROVIDERS: PCP Nurse Practitioner Family; Visit Provider Nurse Practitioner Family
DX: R92.8 Other abnormal and inconclusive findings on diagnostic imaging of breast (principal); N63.25 Unspecified lump in the left breast, overlapping quadrants
CPT/HCPCS: 77062; 77066; G0279

== ENCOUNTER 2024-12-02 10:51 | Emergency (ER) | payer MEDICARE, OTHER, SELFPAY ==
[2024-12-02 11:09] VITALS: BP 153/94; PULSE 95; RESP 18; O2SAT 96; BMI 29.4
[2024-12-02] MEDS: TET/DIPHTH/PERT-ADULT 0.5ML SYRINGE 0.5 ML IM (11:23)
[2024-12-02] MEDS: AMOXICILLIN/CLAVULANATE POTASSIUM 875/125MG TABLET 1 EACH PO (11:24)
[2024-12-02] MEDS: LIDOCAINE 1% 10ML MDV 10 ML IJ (11:27)
--- NOTE | 2024-12-02 12:14 | ED_ITS ---
Discharge Plan Disposition Patient Disposition: Home, Self-Care Prescriptions Prescriptions: New amoxicillin-pot clavulanate 875-125 mg tablet 1 tab PO BID 10 Days Qty: 20 0RF No Action alprazolam 0.5 mg tablet 0.5 mg PO DAILY paroxetine HCl 20 mg tablet 20 tab PO DAILY atorvastatin 20 mg tablet 20 mg PO HS bupropion HCl 300 mg tablet extended release 24 hr 300 mg PO DAILY omeprazole 20 mg capsule,delayed release(DR/EC) 20 mg PO DAILY Referrals Follow up/Referrals: Madhuri Dominguez APRN [Primary Care Provider] - See instructions Activity Restrictions/Add. Instructions Additional Instructions/Restrictions: Call your family doctor to establish care for this visit to the emergency department and schedule follow-up within 48 hours to ensure improvement. If you have any worsening of your condition or any other concerning signs or symptoms, return to the emergency department or your primary care doctor for further evaluation. Augmentin twice daily for 10 days. Stitches out in 7 to 10 days. Soak in warm to hot salt water baths to encourage drainage from open portion of wound Clinical Impressions Clinical Impression: Cellulitis of finger of right hand, Dog bite Instructions Patient Instructions: Animal Bites Print Language Print Language: Filipino Discharge ED Provider: Donald May General Adult HPI General Chief complaint: Animal Bite Stated complaint: dog bite on right middle finger Time Seen by Provider: 12/02/24 11:02 Mode of Arrival: Ambulatory Description of Symptoms (Recalled from ER Triage Doc. by RN): PT STATES THE NIGHT BEFORE LAST SHE WAS PLAYING WITH HER DOG AND WAS GOING TO RETRIEVE A TOY AND HER DOG BIT HER RIGHT MIDDLE FINGER. PTS RIGHT MIDDLE FINGER IS SWOLLEN. PT STATES THAT HER DOG IS UP TO DATE ON VACCINATIONS. History of Present Illness HPI narrative: Please note that above description of symptoms, in this electronic medical record under categorization of recalled from ER triage doctor by RN are reflective of an initial nursing assessment, however, is not reflective of my full history and physical exam that was personally taken and clarified. Consequentially, this preceding description of symptoms, which may include the patient's categorized chief complaint in the EMR, do not reflect my personal c linical impression, and the ultimate description of history of present illness and patient stated complaints should be deferred to this section of the note. Unless stated otherwise or congruent with this section of the note, additional signs, symptoms, or incongruence should be interpreted as inaccurate with my clinical impression. Related Data Home Medications ?Medication ?Instructions ?Recorded ?Confirmed alprazolam 0.5 mg tablet 0.5 mg PO DAILY Anxiety 11/04/20 12/02/24 atorvastatin 20 mg tablet 20 mg PO HS High cholesterol 11/04/20 12/02/24 bupropion HCl 300 mg 24 hr tablet, 300 mg PO DAILY Depression 11/04/20 12/02/24 extended release paroxetine HCl 20 mg tablet 20 tab PO DAILY Depression 11/04/20 12/02/24 omeprazole 20 mg capsule,delayed 20 mg PO DAILY Reflux/Acid reflux 11/03/22 12/02/24 release Previous Rx's ?Medication ?Instructions ?Recorded amoxicillin 875 mg-potassium 1 tab PO BID 10 days #20 tabs 12/02/24 clavulanate 125 mg tablet Allergies Allergy/AdvReac Type Severity Reaction Status Date / Time tetracycline (TETRACYCLINE) Allergy Intermediate I-HIVES Verified 12/02/24 11:41 [facility] Disclaimer: The information contained in this section may have been updated after the patient was seen, as this information can be updated by other users. Medical History Cataract Obstructive sleep apnea (adult) (pediatric) Depression Degenerative disc disease Hyperlipidemia Migraine Surgical History History of colon resection History of tonsillectomy History of hysterectomy History of colonoscopy History of cholecystectomy Family History Other Alcoholism Cancer Coronary artery disease Diabetes Family history of Alzheimer's disease Hypertension Kidney disease Stroke Social History (Updated 12/02/24 @ 11:43 by Lorna Champion RN) Smoking Status: Never smoker how long ago did patient quit smokin yrs alcohol intake: current alcohol intake frequency: a few times a week substance use type: denies use current occupational status: retired Travel in the last 8 weeks: None household members: spouse housing: house marital status: education level: college caffeine: Yes special hetal needs: No agree to transfusion: No do you feel safe at home: Yes victim of physical abuse: No victim of emotional abuse: No victim of sexual abuse: No would you like helpful sources: No Have you lived/traveled outside US in past 30 days?: No Contact w/someone who lives/traveled outside US past 30 days?: No Exposure to someone with infectious disease in past 14 days?: No Do you have a fever (greater than 100.4 F or 38 C)?: No Have you tested positive for COVID-19: No Exposed to someone with COVID-19 in past 14 days?: No Do you have a sore throat?: No Do you have a cough?: No Do you have any weakness?: No Do you have any diarrhea?: No Are you experiencing any unusual bleeding?: No Do you have any muscle aches/pain?: No Do you have any abdominal pain?: No Are you experiencing loss of taste or smell?: No Other Medical History Have you received the Flu Vaccine for this season: Yes Have you received the Pneumonia Vaccine: Yes ROS Obtained: Yes All systems reviewed & no additional complaints except as documented Physical Exam General General appearance: alert Head Head exam: atraumatic and normocephalic Eye Eye exam: Present normal appearance, PERRL and EOMI Neck Neck exam: Present normal inspection, full ROM and trachea midline Respiratory Respiratory exam: Absent respiratory distress, wheezes, stridor, accessory muscle use or prolonged expiratory phase Cardiovascular Cardiovascular exam: Present other (Pulses equal symmetric in upper and lower extremities) Abdominal Exam Abdominal exam: Present soft; Absent distention, tenderness or pulsatile mass Extremities Exam Extremities exam: Absent edema Neurological Exam Neurological exam: Present alert, oriented X3 and CN II-XII intact; Absent motor sensory deficit Skin Skin exam: Present warm and dry; Absent diaphoresis or erythema Medical Decision Making Medical Records Medical records reviewed: Yes I reviewed the patient's medical records. Screening: Per USPSTF and CDC recommendations, given the prevalence of disease in our region, it is our hospital?s policy to screen for HIV and viral Hepatitis for all patients aged 18 and over and those with ongoing risk factors. Sergio Inquiry Pt receiving controlled substance: No Sergio was queried for this patient: No Vital Signs: 12/02/24 11:09 Pulse Rate [Left] 95 H Respiratory Rate 18 Blood Pressure [Left Arm] 153/94 H Blood Pressure Mean [Left Arm] 113 Blood Pressure Source [Left Arm] Automatic Cuff Blood Pressure Position [Left Arm] Supine 02 Sat by Pulse Oximetry 96 Oxygen Delivery Method Room Air Orders (Tests/Meds): ED MEDICATIONS Discontinued Medications Generic Name Dose Route Start Last Admin Trade Name Freq PRN Reason Stop Dose Admin Amoxicillin/Clavulanate Potassium 1 each 12/02/24 11:18 12/02/24 11:24 Amoxicillin/Clavulanate Potassium 875/125mg Tablet PO 12/02/24 11:19 1 each ONCE ONE Administration Lidocaine HCl 10 ml 12/02/24 11:12 12/02/24 11:27 Lidocaine 1% 10ml Mdv IJ 12/02/24 11:13 10 ml ONCE ONE Administration Tetanus/Reduced Diphtheria/Acell Pertussis 0.5 ml 12/02/24 11:18 12/02/24 11:23 Tet/Diphth/Pert-Adult 0.5ml Syringe IM 12/02/24 11:19 0.5 ml .ONCE ONE Administration Medical Decision Narrative: 69-year-old female presenting with injury to her right middle finger. She states that her dog bit her 2 days prior to this. Tried to clean it out for multiple minutes under the faucet, since that time its become progressively red and swollen. No fevers or chills or systemic signs or symptoms. History was obtained via conversation with patient. On arrival, patient hemodynamically stable, alert, oriented x4, appropriate, GCS 15, moving all extremities spontaneously, pupils equal and reactive to light. Full physical exam performed and significant for clinically well-appearing female. She has a 2 cm laceration on the distal phalanx of her right middle finger on the palmar aspect. Subcut aneous tissue. No obvious purulence. The finger itself is swollen and red, only on the ventral/palmar aspect. Not fusiform. No tenderness along the extensor or flexor tendons. Not held in flexion and no pain with passive extension. Differential includes laceration, cellulitis, less likely to be flexor tenosynovitis, deep space infection, among others. X-ray considered, but not deemed necessary. Patient irrigated extensively, soaked in chlorhexidine/saline. She was given Tdap, first dose of Augmentin. Numbed up with 1% lidocaine without epinephrine and laceration was repaired. Given patient presentation, workup, history, this most likely represents cellulitis of the digit after dog bite. Very close return precautions were discussed, patient voiced understanding. Because patient at baseline without signs or symptoms of clinical decompensation, deemed appropriate for discharge. Results were relayed to patient who voiced understanding and were agreeable to outpatient management and follow up. I discussed my clinical impression with patient and answered all questions. At this time, the evidence for any other entities in the differential is insufficient to warrant any further testing or ED observation. This was explained as well. Advisory was given that persistent or worsening symptoms require further evaluation. I confirmed the understanding of this discussion. Cardiac/Vascular Sonographer disclaimer Much of this encounter note is an electronic sales effectiveness manager spoken language to printed text. Electronic sales effectiveness manager of the spoken language may permit errors. Although I have reviewed the note, some errors may still exist. Procedures Laceration Laceration 1: Site: finger Side (If applicable): right Size (cm): 2 Description: linear and irregular Depth: involves subcutaneous layer Local Anesthetic: lidocaine 1% Amount of anesthesia used (mL): 5 Pre-repair: wound explored and irrigated extensively Skin layer closed with: nylon Size (cm): 3-0 Number of sutures: 4 Technique: simple, interrupted Critical Care Critical Care Time Critical Care Time: No
[2024-12-02 12:25] VITALS: BP 148/90; PULSE 88; RESP 18; TEMP 36.7; O2SAT 96
== END 2024-12-02 12:25 | disposition home or self-care (01) ==
PROVIDERS: Emergency Provider Emergency Medicine; PCP Nurse Practitioner Family
DX: S61.212A Laceration without foreign body of right middle finger without damage to nail, initial encounter (principal); L03.011 Cellulitis of right finger; Z23 Encounter for immunization; W54.0XXA Bitten by dog, initial encounter; Y93.89 Activity, other specified; Y92.009 Unspecified place in unspecified non-institutional (private) residence as the place of occurrence of the external cause
CPT/HCPCS: 12001; 90471; 90715; 99283

== ENCOUNTER 2024-12-03 14:41 | Outpatient (CLI) | payer MEDICARE, OTHER, SELFPAY ==
--- NOTE | 2024-12-03 14:50 | MM_ITS ---
PROCEDURE INFORMATION: Exam: MG Left Diagnostic Breast Tomosynthesis Exam date and time: 12/03/2024 2:57 PM Age: 69 years old Clinical indication: Follow-up for a probably benign left breast mass. TECHNIQUE: Imaging protocol: Left Diagnostic tomosynthesis and 2D mammography including computer-aided detection (CAD) when performed. Unilateral or bilateral exam. COMPARISON: 1. MG MM DIG MAMM BI DX W/CAD 06/18/2024 1:09 PM 2. MG MM DIG MAMM DX UNILAT LT CAD 12/29/2023 2:28 PM FINDINGS: MAMMOGRAPHY: Breast composition: There are scattered areas of fibroglandular density. Breast mammogram findings: On the spot compression views of left breast, at the lateral posterior aspect, there is a stable circumscribed mass measuring 0.9 cm, unchanged since 07/03/2023. There is no new or suspicious mass, calcifications, architectural distortion in the left breast. IMPRESSION: Stable mass in the left breast since 07/03/2023. Six-month follow-up left breast diagnostic mammogram is recommended to ensure a full 2 years of stability. ASSESSMENT: BI-RADS Category 3: Probably benign.
== END 2024-12-03 23:59 | disposition home or self-care (01) ==
LOC: RAD 14:42
PROVIDERS: PCP Nurse Practitioner Family; Visit Provider Nurse Practitioner Family
DX: R92.8 Other abnormal and inconclusive findings on diagnostic imaging of breast (principal); N63.20 Unspecified lump in the left breast, unspecified quadrant
CPT/HCPCS: 77061; 77065; G0279

== ENCOUNTER 2024-12-14 16:59 | Emergency (ER) | payer MEDICARE, OTHER, SELFPAY ==
[2024-12-14] VITALS (8 sets, daily range): BP systolic 126–153; BP diastolic 64–91; PULSE 68–97; RESP 14–20; TEMP 36.6–36.8; O2SAT 93–99; BMI 28.7
--- NOTE | 2024-12-14 17:39 | ED_ITS ---
Discharge Plan Disposition Patient Disposition: Home, Self-Care Condition: Good Prescriptions Prescriptions: No Action alprazolam 0.5 mg tablet 0.5 mg PO DAILY paroxetine HCl 20 mg tablet 20 tab PO DAILY atorvastatin 20 mg tablet 20 mg PO HS bupropion HCl 300 mg tablet extended release 24 hr 300 mg PO DAILY omeprazole 20 mg capsule,delayed release(DR/EC) 20 mg PO DAILY amoxicillin-pot clavulanate 875-125 mg tablet 1 tab PO BID 10 Days Qty: 20 0RF Referrals Follow up/Referrals: Madhrui Dominguez APRN [Primary Care Provider] - See instructions Activity Restrictions/Add. Instructions Additional Instructions/Restrictions: Please return with any new or worsening symptoms. Clinical Impressions Clinical Impression: CHI (closed head injury) Print Language Print Language: [place] Discharge ED Provider: Yuri Sosa Adult HPI General Chief complaint: Fall Stated complaint: AO 12/14/24 1500 fell hit head Time Seen by Provider: 12/14/24 17:39 Mode of Arrival: Ambulatory Source of Information: Patient Description of Symptoms (Recalled from ER Triage Doc. by RN): pt presents to ED after fall. pt reports that she was pushing her son in a wheelchair when she tripped and fell. pt reports that she hit the asphalt. pt has small bruising an swelling to right eye. pt reports associated dizziness, nausea. appprox 2 hours ago. History of Present Illness HPI narrative: Patient presents after nonsyncopal fall from standing with no preceding malaise weakness nausea vomiting palpitations shortness of breath. She states she slipped and fell onto her front of her head. She did not lose consciousness she does not use any blood thinners. She describes some mild paraspinal tenderness to palpation. She reports of drowsiness. She is alert and oriented at this time. Family member denies observing any confusion. Denied any nausea following the fall or vomiting. She does not have any pain elsewhere. Please note that above description of symptoms, in this electronic medical record under categorization of recalled from ER triage doctor by RN are reflective of an initial nursing assessment, however, is not reflective of my full history and physical exam that was personally taken and clarified. Consequentially, this preceding description of symptoms, which may include the patient's categorized chief complaint in the EMR, do not reflect my personal clinical impression, and the ultimate description of history of present illness and patient stated complaints should be deferred to this section of the note. Unless stated otherwise or congruent with this section of the note, additional signs, symptoms, or incongruence should be interpreted as inaccurate with my clinical impression. Related Data Home Medications ?Medication ?Instructions ?Recorded ?Confirmed alprazolam 0.5 mg tablet 0.5 mg PO DAILY Anxiety 11/04/20 12/02/24 atorvastatin 20 mg tablet 20 mg PO HS High cholesterol 11/04/20 12/02/24 bupropion HCl 300 mg 24 hr tablet, 300 mg PO DAILY Depression 11/04/20 12/02/24 extended release paroxetine HCl 20 mg tablet 20 tab PO DAILY Depression 11/04/20 12/02/24 omeprazole 20 mg capsule,delayed 20 mg PO DAILY Reflux/Acid reflux 11/03/22 12/02/24 release Previous Rx's ?Medication ?Instructions ?Recorded amoxicillin 875 mg-potassium 1 tab PO BID 10 days #20 tabs 12/02/24 clavulanate 125 mg tablet Allergies Allergy/AdvReac Type Severity Reaction Status Date / Time tetracycline (TETRACYCLINE) Allergy Intermediate I-HIVES Verified 12/02/24 11:41 [facility] Disclaimer: The information contained in this section may have been updated after the patient was seen, as this information can be updated by other users. Medical History Cataract Obstructive sleep apnea (adult) (pediatric) Depression Degenerative disc disease Hyperlipidemia Migraine Surgical History History of colon resection History of tonsillectomy History of hysterectomy History of colonoscopy History of cholecystectomy Family History Other Alcoholism Cancer Coronary artery disease Diabetes Family history of Alzheimer's disease Hypertension Kidney disease Stroke Social History (Updated 12/02/24 @ 11:43 by Lorna Champion RN) Smoking Status: Never smoker how long ago did patient quit smokin yrs alcohol intake: current alcohol intake frequency: a few times a week substance use type: denies use current occupational status: retired Travel in the last 8 weeks: None household members: spouse housing: house marital status: education level: college caffeine: Yes special hetal needs: No agree to transfusion: No do you feel safe at home: Yes victim of physical abuse: No victim of emotional abuse: No victim of sexual abuse: No would you like helpful sources: No Have you lived/traveled outside US in past 30 days?: No Contact w/someone who lives/traveled outside US past 30 days?: No Exposure to someone with infectious disease in past 14 days?: No Do you have a fever (greater than 100.4 F or 38 C)?: No Have you tested positive for COVID-19: No Exposed to someone with COVID-19 in past 14 days?: No Do you have a sore throat?: No Do you have a cough?: No Do you have any weakness?: No Do you have any diarrhea?: No Are you experiencing any unusual bleeding?: No Do you have any muscle aches/pain?: No Do you have any abdominal pain?: No Are you experiencing loss of taste or smell?: No Other Medical History Have you received the Flu Vaccine for this season: Yes Have you received the Pneumonia Vaccine: Yes ROS Obtained: Yes other As per HPI Physical Exam General General appearance: alert and in no apparent distress Head Head exam: atraumatic and normocephalic Eye Eye exam: Present normal appearance Neck Neck exam: Present normal inspection Chest Chest inspection: Present normal inspection and symmetric chest wall rise Respiratory Respiratory exam: Present normal lung sounds bilaterally; Absent respiratory distress Cardiovascular Cardiovascular exam: Present regular rate and normal rhythm Abdominal Exam Abdominal exam: Present soft Neurological Exam Neurological exam: Present alert and oriented X3 Psychiatric Psychiatric exam: Present normal affect and normal mood Skin Skin exam: Present warm and dry Other Other exam information: Right periorbital bruising with no ocular involvement Medical Decision Making Medical Records Medical records reviewed: Yes I reviewed the patient's medical records. Screening: Per USPSTF and CDC recommendations, given the prevalence of disease in our region, it is our hospital?s policy to screen for HIV and viral Hepatitis for all patients aged 18 and over and those with ongoing risk factors. Sergio Inquiry Pt receiving controlled substance: No Vital Signs: 12/14/24 17:06 12/14/24 17:08 12/14/24 17:15 Temperature 98.2 F Temperature Source Oral Pulse Rate 97 H Pulse Rate [Left Radial] 94 H Respiratory Rate 20 Blood Pressure 145/89 H 126/86 Blood Pressure [Right Arm] 145/89 H Blood Pressure Mean 93 Blood Pressure Mean [Right Arm] 107 Blood Pressure Position 02 Sat by Pulse Oximetry 96 99 93 L Oxygen Delivery Method Room Air Room Air Room Air 12/14/24 17:30 12/14/24 17:45 12/14/24 18:00 Temperature Temperature Source Pulse Rate 94 H 86 85 Pulse Rate [Left Radial] Respiratory Rate Blood Pressure 131/81 128/82 146/89 H Blood Pressure [Right Arm] Blood Pressure Mean Blood Pressure Mean [Right Arm] Blood Pressure Position 02 Sat by Pulse Oximetry 93 L 93 L 93 L Oxygen Delivery Method Room Air Room Air Room Air 12/14/24 18:30 12/14/24 20:06 Temperature 98 F Temperature Source Pulse Rate 84 68 Pulse Rate [Left Radial] Respiratory Rate 14 Blood Pressure 153/91 H 134/64 Blood Pressure [Right Arm] Blood Pressure Mean Blood Pressure Mean [Right Arm] Blood Pressure Position Sitting 02 Sat by Pulse Oximetry 93 L Oxygen Delivery Method Room Air Room Air Orders (Tests/Meds): ORDERS Category Date Time Status CT cervical spine wo con Stat Cat Scan 12/14/24 17:[address] facial bones wo con Stat Cat Scan 12/14/24 17:[address] head/brain wo con Stat Cat Scan 12/14/24 17:58 Completed Medical Decision Narrative: Patient with history and exam per above presenting for evaluation of closed head injury Diagnoses considered include concussion, intracranial hemorrhage, cervical spinal injury, no clinical evidence of vascular injury or nerve injury. Wounds are closed. No clinical evidence of injury outside of front of head ED workup and treatment included: ORDERS Category Date Time Status CT cervical spine wo con Stat Cat Scan 12/14/24 17:[address] facial bones wo con Stat Cat Scan 12/14/24 17:[address] head/brain wo con Stat Cat Scan 12/14/24 17:58 Completed Imaging was independently visualized and interpreted by me, significant for no acute findings Please refer to radiology report for full details. My clinical impression at this time is most consistent with postconcussive syndrome I discussed my clinical impression with patient and answered all questions. At this time, the evidence for any other entities in the differential is insufficient to warrant any further testing or ED observation. This was explained to the patient. The patient was advised that persistent or worsening symptoms require further evaluation. Critical Care Critical Care Time Critical Care Time: No
--- NOTE | 2024-12-14 17:58 | CT_ITS ---
PROCEDURE INFORMATION: Exam: CT Maxillofacial Without Contrast Exam date and time: 12/14/2024 6:16 PM Age: 69 years old Clinical indication: Injury or trauma; Blunt trauma (contusions or hematomas); Other: Fall, facial injury TECHNIQUE: Imaging protocol: Computed tomography of the face without contrast. Radiation optimization: All CT scans at this facility use at least one of these dose optimization techniques: automated exposure control; mA and/or kV adjustment per patient size (includes targeted exams where dose is matched to clinical indication); or iterative reconstruction. COMPARISON: CT HEAD/BRAIN WO CON 12/14/2024 6:13 PM FINDINGS: Paranasal sinuses: No air-fluid levels. Orbital cavities: Orbits are normal. Globes are unremarkable. Bones: No acute fracture. Bilateral temporomandibular joint degenerative changes Soft tissues: Suggestion of mild chin subcutaneous soft tissue swelling. IMPRESSION: 1. No acute maxillofacial fracture. 2. Suggestion of mild chin subcutaneous soft tissue swelling.
--- NOTE | 2024-12-14 17:58 | CT_ITS ---
PROCEDURE INFORMATION: Exam: CT Cervical Spine Without Contrast Exam date and time: 12/14/2024 6:18 PM Age: 69 years old Clinical indication: Injury or trauma; Fall; Blunt trauma; Additional info: Fall, facial injury TECHNIQUE: Imaging protocol: Computed tomography of the cervical spine without contrast. Radiation optimization: All CT scans at this facility use at least one of these dose optimization techniques: automated exposure control; mA and/or kV adjustment per patient size (includes targeted exams where dose is matched to clinical indication); or iterative reconstruction. COMPARISON: CT FACIAL BONES WO CON 12/14/2024 6:16 PM FINDINGS: Bones: Cervical vertebrae normal in height. No acute fracture. Straightening of normal cervical lordosis. Mild left lateral tilt. Grade 1 anterolisthesis C3 on C4. Maintained craniocervical junction. Multilevel degenerative changes. Varying degrees of neural foraminal narrowing. No severe spinal canal stenosis. Lungs: Lung apices are normal. Soft tissues: Unremarkable. IMPRESSION: No acute osseous findings.
--- NOTE | 2024-12-14 17:58 | CT_ITS ---
PROCEDURE INFORMATION: Exam: CT Head Without Contrast Exam date and time: 12/14/2024 6:13 PM Age: 69 years old Clinical indication: Injury or trauma; Fall; Blunt trauma (contusions or hematomas); Additional info: Fall, facial injury TECHNIQUE: Imaging protocol: Computed tomography of the head without contrast. Radiation optimization: All CT scans at this facility use at least one of these dose optimization techniques: automated exposure control; mA and/or kV adjustment per patient size (includes targeted exams where dose is matched to clinical indication); or iterative reconstruction. COMPARISON: CT HEAD/BRAIN WO CON 12/14/2024 6:13 PM FINDINGS: Brain: No acute intracranial hemorrhage, midline shift, or mass effect. Diffuse brain parenchymal volume loss. Mild hypodensities within the cerebral white matter most consistent with chronic small-vessel ischemic changes. Cerebral ventricles: No ventriculomegaly. Paranasal sinuses: Visualized sinuses are unremarkable. No fluid levels. Mastoid air cells: Visualized mastoid air cells are well aerated. Bones: Unremarkable. No acute fracture. Soft tissues: Unremarkable. IMPRESSION: No acute intracranial findings.
--- NOTE | 2024-12-14 18:04 | PC.NURSE ---
pt ambulated to restroom and back to room without difficulty.
== END 2024-12-14 20:07 | disposition home or self-care (01) ==
PROVIDERS: Emergency Provider Emergency Medicine; PCP Nurse Practitioner Family
DX: S06.0X0A Concussion without loss of consciousness, initial encounter (principal); R42 Dizziness and giddiness; R11.0 Nausea; W01.198A Fall on same level from slipping, tripping and stumbling with subsequent striking against other object, initial encounter
CPT/HCPCS: 99285; 70450; 70486; 72125

== ENCOUNTER 2024-12-19 08:22 | Outpatient (CLI) | payer MEDICARE, OTHER, SELFPAY ==
[2024-12-19 08:42] LABS: Basophils % 0.7 % (0.1-2.0); Eosinophils # 0.1 K/mm3 (0.0-0.4); Eosinophils % 1.9 % (0.1-12.0); Hematocrit 41.2 % (37.0-47.0); Hemoglobin 13.8 g/dL (12.2-16.2); Lymphocytes # 2.4 K/mm3 (0.7-4.5); Lymphocytes % 41.4 % (10-50); Mean Corpuscular HGB Conc 33.5 g/dL (31.8-35.4); Mean Corpuscular Hemoglobin 29.8 pg (27.0-31.2); Mean Platelet Volume 9.4 fl (7.4-10.4); Monocytes # 0.6 K/mm3 (0.1-1.0); Monocytes % 9.4 % (1.7-9.3); Neutrophils # 2.7 K/mm3 (1.8-7.8); Neutrophils % 46.4 % (37.0-80.0); Nucleated Red Blood Cells # 0 10^3/uL; Nucleated Red Blood Cells % 0 %; Platelet Count 265 K/mm3 (142-424); Red Blood Count 4.63 M/mm3 (4.20-5.40); Red Cell Distribution Width 11.9 % (11.5-17.5); Red Cell Distribution Width-SD 38.5 fL; White Blood Count 5.8 K/mm3 (4.8-10.8)
[2024-12-19 09:10] LABS: Alanine Aminotransferase 37 U/L (12-78); Albumin Level 4.3 g/dl (3.5-5.0); Albumin/Globulin Ratio 1.5 (1.1-1.8); Alkaline Phosphatase 101 U/L (38-126); Anion Gap 14.1 mEq/L (5-15); Aspartate Amino Transferase 33 U/L (14-36); Blood Urea Nitrogen 15 mg/dl (7-17); Calcium 9.4 mg/dl (8.4-10.2); Carbon Dioxide 28 mmol/L (22.0-30.0); Chloride 104 mmol/L (98-107); Cholesterol 161 mg/dl (140-200); Estimated Glomerular Filt Rate 55 ml/min (>60); GFR (African American) 67 ML/MIN (>60); Globulin 2.8 g/dL (1.3-3.2); Glucose 122 mg/dl (74-100); HDL Cholesterol 40 mg/dl (40-60); Potassium 4.1 mmoL/L (3.5-5.1); Sodium 142 mmol/L (136-145); Total Protein,Serum 7.1 g/dl (6.3-8.2); Triglycerides 121 mg/dl (30-150); VLDL Cholesterol 24 mg/dL (0-40)
[2024-12-19 09:12] LABS: Hemoglobin A1C 5.9 % (4.0-6.0)
[2024-12-19 09:22] LABS: Direct LDL Cholesterol 88.25 mg/dL (100-129)
[2024-12-19 09:27] LABS: Free Thyroxine Index 2.1 ug/dL (5.93-13.13); T4 (Thyroxine) 7.1 ug/dl (5.53-11.0); Triiodothryronine (T3) Uptake 30 % (23.5-40.5)
[2024-12-19 09:28] LABS: 25-OH Vitamin D, Total 47.3 ng/mL (30-100)
[2024-12-19 09:41] LABS: Thyroid Stimulating Hormone 0.32 uIU/mL (0.465-4.68)
[2024-12-19 09:59] LABS: Vitamin B12 > 1000 pg/mL (239-931)
== END 2024-12-19 23:59 | disposition home or self-care (01) ==
PROVIDERS: PCP Nurse Practitioner Family; Visit Provider Nurse Practitioner Family
DX: R55 Syncope and collapse (principal); R73.03 Prediabetes; I10 Essential (primary) hypertension; R00.2 Palpitations; E55.9 Vitamin D deficiency, unspecified; Z79.899 Other long term (current) drug therapy
CPT/HCPCS: 36415; 80053; 80061; 82306; 82607; 83036; 83735; 84436; 84443; 84479; 85025; 93225; 93226

== ENCOUNTER 2025-01-07 11:52 | Outpatient (CLI) | payer MEDICARE, OTHER, SELFPAY | END 2025-01-07 23:59 | disposition home or self-care (01) | LOC: RT 11:53 | PROVIDERS: PCP Nurse Practitioner Family; Visit Provider Nurse Practitioner | DX: R55 Syncope and collapse (principal); I47.20 Ventricular tachycardia, unspecified; R06.02 Shortness of breath | CPT/HCPCS: 93270 ==

== ENCOUNTER 2025-01-14 06:40 | Outpatient (CLI) | payer MEDICARE, OTHER, SELFPAY ==
--- NOTE | 2025-01-14 | CA_ITS ---
APPROVED REPORT Exam: Pharmacologic Technologist: Sabina Hanks Ht: 5 ft 10 in Wt: 210 lbs BSA: 2.13 m2 HR: 61 bpm BP: 150/81 mmHg Stress Test Details Test: Lexiscan HR Resting HR: 61 bpm Max Heart Rate (APMHR): 153.182469 bpm Max HR Achieved: 86 bpm Target HR (85% APMHR): 130.567876 bpm % of APMHR: 56.21 Recovery HR: 79 bpm BP Resting BP: 150.0/81.0 mmHg Max BP: 161.0/87.0 mmHg Recovery BP: 146.0/90.0 mmHg ECG Resting ECG: Sinus rhythm Stress ECG Conclusion Symptoms: Dizziness, lightheaded Arrhythmias/Ectopy: - ST-T Changes: Less than [address] depression Conclusion: EKG unremarkable due to Lexiscan infusion. Electronically signed by : Liliana Gloria MD 01/14/2025 12:00:21
--- NOTE | 2025-01-14 07:00 | NM_ITS ---
APPROVED REPORT Exam: Nuclear Stress Test Indication: Palpitations, Fatigue, Family history Patient Location: Outpatient Stress Tech: Sabina Hanks [place] Tech:Estephanie Fournier, ARRT, RT (R)(N) Ht: 5 ft 10 in Wt: 200 lbs Bra Size: 36B HR: 63 bpm BP: 150/81 mmHg BSA: 2.09 m2 TID: 1.04 BMI: 28.6 History: Palpitations, Fatigue, Family history Procedure: Patient received 0.4 mg of intravenous Lexiscan, resting heart rate 63 bpm, resting blood pressure 150/81 mmHg, with Lexiscan maximum heart rate achieved was 88 bpm which is % of the maximum predicted heart rate and blood pressure was 161/87 mmHg. With Lexiscan, patient denied any complaint of chest pain. Cardiac Stress and Resting SPECT Images: Cardiac Stress and Resting SPECT images were obtained using technetium 99m Myoview 32.3 mCi stress and 10.19 mCi at rest. Raw images demonstrate significant GI radiotracer uptake in close proximity to the inferior LV wall. This may affect diagnostic interpretation of the study findings. Resting and stress imaging in supine and prone positions demonstrate no evidence of fixed or reversible perfusion defects. Gated imaging demonstrates normal global and regional LV systolic function. LVEF is calculated at 64%. Conclusion: No evidence of fixed or reversible perfusion defects. Gated imaging demonstrates normal global and regional LV systolic function. LVEF is calculated at 64%. Electronically signed by : Liliana Gloria MD 01/14/2025 11:59:01
[2025-01-14] MEDS: SODIUM CHLORIDE 0.9% 10ML SYR (RAD ONLY) 10 ML IV ×2 (08:19→08:20)
[2025-01-14] MEDS: REGADENOSON 0.4MG/5ML SYRINGE 0.4 MG IV (08:19)
[2025-01-14] MEDS: ISOTOPE MYOVIEW (PER STUDY) 1 DOSE IV (08:20)
== END 2025-01-14 23:59 | disposition home or self-care (01) ==
LOC: RAD 06:41
PROVIDERS: PCP Nurse Practitioner Family; Visit Provider Nurse Practitioner
DX: R06.02 Shortness of breath (principal); I47.20 Ventricular tachycardia, unspecified; R55 Syncope and collapse
CPT/HCPCS: 78452; 93017; 93018; A9502; J2785

== ENCOUNTER 2025-01-16 08:27 | Outpatient (CLI) | payer MEDICARE, OTHER, SELFPAY ==
--- NOTE | 2025-01-16 08:29 | CT_ITS ---
FINAL REPORT TECHNIQUE: Axial CT images of the chest were obtained without contrast. Coronal and sagittal reconstructed images were also obtained. Low-dose protocol was utilized. This study was performed with techniques to keep radiation doses as low as reasonably achievable (ALARA). Individualized dose reduction techniques using automated exposure control or adjustment of mA and/or kV according to the patient's size were employed. CLINICAL HISTORY: Lung screening, former smoker (quit 13 yrs ago), smoked 1 1/2 packs per day for 20+ yrs COMPARISON: 10/27/2023 FINDINGS: CT CHEST WITHOUT, LOW DOSE SCREENING CTDl vol(mGy): 2.90 DLP (mGy-cm): 105.51 There is no axillary adenopathy. There is no mediastinal adenopathy. There are calcified right hilar lymph nodes. The heart size is normal. There is no pericardial or pleural effusion. Lung window images demonstrate a new pleural-based density in the medial right lower lobe measuring 5 mm in greatest dimension. This is seen on image 167 of series 2. Limited images of the upper abdomen demonstrate the gallbladder to be surgically absent.. IMPRESSION: Lung RADS category 3. Recommend 6 month follow-up chest CT per Fleischner criteria. Reviewed, Interpreted and Dictated by Dionicio Navarro MD Transcribed by Meghan Domínguez Authenticated and [facility]
== END 2025-01-16 23:59 | disposition home or self-care (01) ==
LOC: RAD 08:27
PROVIDERS: PCP Nurse Practitioner Family; Visit Provider Nurse Practitioner Family
DX: R91.8 Other nonspecific abnormal finding of lung field (principal); Z87.891 Personal history of nicotine dependence
CPT/HCPCS: 71271

== ENCOUNTER 2025-01-20 10:35 | Outpatient (CLI) | payer MEDICARE, OTHER, SELFPAY ==
--- NOTE | 2025-01-20 | CA_ITS ---
APPROVED REPORT EXAM: Comprehensive 2D, Doppler, and color-flow Echocardiogram Personnel Counselor: Ivett Maldonado, RT(R) Ht: 5 ft 10 in Wt: 210lbs BSA: 2.13 BP: 154/86 mmHg Indications: syncope, ex smoker, fatigue, HLD, SOB, MORALES, v-tach, dizziness, EMRE 2D Dimensions Left Atrium 2.40 cm F: 2.7 - 3.8 LVEF (Mitchell's) 57.90 % F: 54 - 74 LVOT 1.78 cm (M/F) 1.5-2.5 LV Volume 63.60 mL F: 46 - 106 LV Volume Index 29.9 mL/m2 F: 29 - 61 LA Volume 23.30 mL LA Volume Index 10.94 mL/m2 (M/F) 16-34 EF AP4 52.20 % EF AP2 61.6 % EF BP 57.9 % GL Strain -19.0 % M-Mode Dimensions RVDd 2.99 cm (0.9-2.6) LVDd 4.09 cm (3.5-5.7) Ao Diam 2.74 cm (2.0-3.7) LVDs 3.11 cm (3.5-5.7) IVSd 0.76 cm (0.6-1.1) PWd 0.76 cm (0.6-1.1) EF (Teich) 48.20% FS 24.00% EDV (Teich) 73.80 mL ESV (Teich) 38.20 mL LV Diastology E Decel Time 219 (160-240 msec) E/A Ratio 0.7 MED E' 6.2 (>= 7 cm/sec) E'/MED E' Ratio 11.97 (<= 14) LAT E' 8.7 (>= 10 cm/sec) E/LAT E' Ratio 8.53 (<= 14) Mitral Valve MV E Max Víctor. 74.0 (40-130 cm/s) MV A Velocity 102.0 (40-130 cm/s) E/A Ratio 0.73 MV Decel. Time 219 (160-240 ms) Tricuspid Valve TR P. Velocity 227.00 cm/s Left Ventricle The left ventricle is normal size. The left ventricular systolic function is normal. The left ventricular ejection fraction is within the normal range. There is normal left ventricular wall thickness. There is normal LV segmental wall motion. The left ventricular diastolic function is normal. LVEF is 55%. Right Ventricle The right ventricle is normal size. The right ventricular systolic function is normal. Atria The left atrium size is normal. The right atrium size is normal. There is no Doppler evidence of interatrial shunt. Aortic Valve The aortic valve is mildly thickened. There is no aortic valvular stenosis. Trace aortic regurgitation. Mitral Valve The mitral valve is normal in structure. No evidence of mitral valve stenosis. Trace mitral regurgitation. Tricuspid Valve Tricuspid valve is grossly normal in structure and function. Trace tricuspid regurgitation. There is insufficient TR jet to estimate RVSP. Pulmonic Valve The pulmonary valve is normal in structure. Gross pulmonic regurgitation. Great Vessels The aortic root is normal in size. IVC is normal in size and collapses >50% with inspiration. Pericardium There is no pericardial effusion. Other Information Study Quality: Fair Conclusion Normal biventricular systolic function. No significant valvular stenosis or regurgitation. Electronically signed by : Liliana Gloria MD 01/27/2025 20:45:29
== END 2025-01-20 23:59 | disposition home or self-care (01) ==
LOC: RT 10:36
PROVIDERS: PCP Nurse Practitioner Family; Visit Provider Nurse Practitioner
DX: I47.20 Ventricular tachycardia, unspecified (principal); R55 Syncope and collapse; R53.83 Other fatigue; E78.5 Hyperlipidemia, unspecified; G47.33 Obstructive sleep apnea (adult) (pediatric); Z87.891 Personal history of nicotine dependence
CPT/HCPCS: 93306

== ENCOUNTER 2025-01-22 08:27 | Outpatient (CLI) | payer MEDICARE, OTHER, SELFPAY ==
--- NOTE | 2025-01-22 08:37 | XR_ITS ---
FINAL REPORT TECHNIQUE: Bone densitometry calculations of the lumbar spine and left hip were obtained. CLINICAL HISTORY: SCREENING COMPARISON: 07/04/2022 FINDINGS: Using L1-4, the bone mineral density of the spine is 1.071 g/cm2, corresponding to T-score of 0.2. Using the right hip, the bone mineral density of the femoral neck is 0.771 g/cm2, corresponding to a T-score of -0.7. Using the right forearm, the bone mineral density of the one third is 0.554 g/cm?, corresponding to a T-score of -2.3. NOTE: T-score: Standard deviation compared with peak bone mass of young adult mean. *Following the recommendations of the International Society of Bone densitometry, classification of hip BMD is based on the lower of two T-scores; total hip or femoral neck. IMPRESSION: Diminished bone mineral density of the right forearm consistent with osteopenia. Normal bone mineral density of the lumbar spine and right hip. Reviewed, Interpreted and Dictated by Kenji Ayala MD Transcribed by Kelly Alaniz Authenticated and . [facility]
== END 2025-01-22 23:59 | disposition home or self-care (01) ==
LOC: RAD 08:29
PROVIDERS: PCP Nurse Practitioner Family; Visit Provider Nurse Practitioner Family
DX: M85.831 Other specified disorders of bone density and structure, right forearm (principal)
CPT/HCPCS: 77080

== ENCOUNTER 2025-06-03 09:43 | Outpatient (CLI) | payer MEDICARE, OTHER, SELFPAY ==
--- NOTE | 2025-06-03 09:49 | MM_ITS ---
PROCEDURE INFORMATION: Exam: MG Bilateral Diagnostic Breast Tomosynthesis Exam date and time: 06/03/2025 9:56 AM Age: 70 years old Clinical indication: Follow-up of a probably benign left breast mass. TECHNIQUE: Imaging protocol: Bilateral Diagnostic tomosynthesis and 2D mammography including computer-aided detection (CAD) when performed. Unilateral or bilateral exam. COMPARISON: 1. MG MM DIG MAMM DX UNILAT LT CAD 12/03/2024 2:57 PM 2. MG MM DIG MAMM BI DX W/CAD 06/18/2024 1:09 PM FINDINGS: MAMMOGRAPHY: Breast composition: There are scattered areas of fibroglandular density. Breast mammogram findings: The previously seen low-density rounded left breast mass is much less prominent on the current study and measures approximately 0.5 cm, seen best on the craniocaudal spot compression view. This is therefore benign. No new or suspicious mass, unexplained distortion, or suspicious calcifications. No mammographic evidence of malignancy in the right breast. IMPRESSION: 1. No mammographic evidence of malignancy. Mass in the left breast previously measuring 0.9 cm currently measures 0.5 cm and is considered benign. 2. Annual bilateral mammographic screening is recommended unless otherwise clinically indicated. ASSESSMENT: BI-RADS Category 2: Benign.
--- OUTSIDE RECORDS SUMMARY | 2025-06-03 09:55 | XMS_ITS | Encounter Summary ---
Author Organization [facility] Address [address] [place] [address] Care Team Providers Care Cad Engineer Name Role Phone Gianfranco Wynn MD Primary Care Provider [phone] Encounter Details Date Type Department Care Team (Late st Contact Info) Description 06/06/2013 Conversion Encounter [facility] [address] [facility] [place] [id number] Interface, See Report Social History Tobacco Use Types Packs/Day Years Used Date Smoking Tobacco: Never Assessed Comments Unknown Sex and Gender Information Value Date Recorded Sex Assigned at Not on file Legal Sex Female 10:17 AM EDT Gender Identity Not on file Sexual Orientation Not on file documented as of this encounter Progress Notes * Interface, See Report - 06/06/2013 12:00 AM EDT PHYSICIAN COMPENSATION ANALYST-[facility] [address] [place], [place] [id number] Patient: RAVI MENDOAZ MR #: : [id number] Date of Visit: 06/06/2013 Attending Physician: Maude Fregoso Dictated By: MAUDE FREGOSO Referring Physician: Diagnosis: PHYSICIAN COMPENSATION ANALYST ANNUAL EXAM; H/O CERVICAL CANCER Allergies: TETRACYCLINE, ZOLOFT History of present illness: PHYSICIAN COMPENSATION ANALYST ANNUAL EXAM; PT. DENIES ANY CURRENT PHYSICIAN COMPENSATION ANALYST PROBLEMS. 58 yo female herefor annual exam with a history of cervical cancer. She is feeling well today, her bowels and bladder are working well and she denies vaginal bleeding or pelvic pain. Her mammogram and colonoscopy areUTD, and she requests a refill on Cenestin today. Present family and/or social history: Family history: FAMILY HISTORY OF HEART DISEASE Social history: Tobacco Y N PPD ETOH Y N # Drinks Marital Status M Occupation Past medical history: Medical: H/O CERVICAL CANCER, ANXIETY, HYPERLIPIDEMIA, HYPERTENSION Surgical: LASER, BTL,TVH Health maintenance: Mammogram: 06/2013 Colonoscopy: 2009 Pap smear: 06/2012 Tumor Marker: CT Scan: BMD: 2002 Ultrasound: Review of systems: Constitutional: No change in weight, no excessive fatigue Psychiatric: + ANXIETY No history of depression, bipolar disorder, or insomnia Eyes: +GLASSES. Vision unchanged Ears, Nose, Mouth, Throat: Hearing normal, no swallowing difficulties, no sore throat Endocrine: No history of diabetes, thyroid disease, heat/cold intolerance Lymphatic: No enlarged lymph nodes Respiratory: No shortness of breath, cough, asthma, wheezing Cardiovascular: + HYPERTENSION; + HYPERLIPIDEMIA No angina, orthopnea, edema, murmur Gastrointestinal: No constipation or diarrhea, no reflux, nausea, or vomiting Genitourinary: No dysuria, hematuria, urgency, or frequency Neurologic: No numbness, weakness, syncope, seizures, or headaches Musculoskeletal: No muscle weakness, or joint pain Integumentary: No new skin lesions Gynecologic: +H/O CERVICAL CANCER. No abnormal bleeding, vaginal discharge, pelvic pain LMP: P: 1 Vag Deliveries: 1 C-sec: Misc: Hematologic: No history of anemia, easy bruising, or blood clots Medications: Medication Reconciliation for the patient has been reviewed in the EMR. Physical exam: Constitutional: Weight 173 Height 70 BP 134/76 Pulse Temp Neurological/Psychiatric: HEENT: Neck: Respiratory: Cardiovascular: Breasts: , scar to L breast at site of previous biopsy, nipples inverted bilaterally Gastrointestinal: Lymphatic: Extremities: Skin: Gynecologic: External Genitalia: Vagina: Cervix: Uterus: Ovaries: Parametria: Smooth. Rectovaginal: Hemoccult: Procedure note: Assessment: Annual Well Woman Exam H/O Cervical Cancer Plan: Cenestin 0.625 mg PO Qday # 30 refill x 11 Mamm done today. RTC Approved by: Maude Fregoso 3:25 PM , 06/06/2013 cc: documented in this encounter Plan of Treatment Not on file documented as of this encounter Visit Diagnoses Not on filedocumented in this encounter Care Teams Cad Engineer Relationship Specialty Start Date End Date Gianfranco Wynn MD [address] [facility] [address] [place] [id number] PCP - General Adolescent Medicine 05/12/22 documented as of this encounter
--- OUTSIDE RECORDS SUMMARY | 2025-06-03 09:55 | XMS_ITS | Clinical Summary ---
Author Organization Healthcare Address [address] [place] [address] Care Team Providers Care Lump Machine Operator Name Role Phone Gianfranco Wynn MD Primary Care Provider [phone] Family History Medical History Relation Name Comments Aortic aneurysm Other 1 Diabetes Other 2 Heart attack Other 3 Relation Name Status Comments Other 1 Other 2 Other 3 Social History Tobacco Use Types Packs/Day Years Used Date Smoking Tobacco: Former Comments Unknown Sex and Gender Information Value Date Recorded Sex Assigned at Not on file Legal Sex Female 7:26 PM EDT Gender Identity Not on file Sexual Orientation Not on file Last Filed Vital Signs Vital Sign Reading Time Taken Comments Blood Pressure 144/74 02/28/2018 9:25 AM EDT Pulse 76 02/28/2018 9:25 AM EDT Temperature - - Respiratory Rate - - Oxygen Saturation - - Inhaled Oxygen Concentration - - Weight 87.1 kg (192 lb 0.3 oz) 02/28/2018 9:25 A M EDT Height 180.3 cm (5' 11 ) 02/28/2018 9:25 AM EDT Body Mass Index 26.78 02/28/2018 9:25 AM EDT Plan of Treatment Health Maintenance Due Date Last Done Comments [facility]-Bone Density Scan 1955 [facility]-Depression Screening 1955 [facility]-Infant/Child/Adol SDOH Screenings 1955 [facility]- SDOH Screenings 1975 [facility]-Adult SDOH Screenings 1975 [facility]-DTaP,Tdap,and Td Vaccine s (1 - Tdap) 1976 CT Colonography 2002 Colonoscopy 2002 FIT-DNA 2002 FIT 2002 FOBT 2002 Sigmoidoscopy 2002 [facility]-Colorectal Cancer Screening 2002 [facility]-Pneumococcal Vaccine: 50 + Years (1 of 1 - PCV) 2007 [facility]-Zoster Vaccines (1 of 2) 2007 [id number] Vaccine (1 - 20 24-25 season) 2025 [facility]-Influenza Vaccine (#1) 2025 [facility]-RSV Vaccine: 60+ Years o r (1 - 1-dose 75+ series) 2032 HPV Vaccines Aged Out No longer eligi ble based on patient's age to complete this topic [facility]-HIB Vaccines Aged Out No longer e ligible based on patient's age to complete this topic [facility]-Hepatitis A Vaccines Aged Out No longer eligible based on patient's age to complete this topic [facility]-IPV Vaccines Aged Out No longer e ligible based on patient's age to complete this topic [facility]-Rotavirus Vaccines Aged Out No lo nger eligible based on patient's age to complete this topic Care Teams Lump Machine Operator Relationship Specialty Start Date End Date Gianfranco Wynn MD [address] [place] [address] [place] [address] PCP - General 01/15/21
--- OUTSIDE RECORDS SUMMARY | 2025-06-03 09:55 | XMS_ITS | Clinical Summary ---
Author Organization [facility] Address [address] [place] [address] Care Team Providers Care Certified Corporate Travel Executive Name Role Phone Gianfranco Wynn MD Primary Care Provider [phone] Allergies Active Allergy Reactions Criticality Noted Date Comments Tetracyclines & Related Other (See Comments) BLISTERS IN MOUTH Medications buPROPion XL (WELLBUTRIN XL) 300 MG 24 hr tablet Take 300 mg by mouth daily. Active PARoxetine (PAXIL) 30 MG tablet Take 30 mg by mouth Every Morning. Active valACYclovir (VALTREX) 500 MG tablet Take 500 mg by mouth As Needed. Active atorvastatin (LIPITOR) 10 MG tablet Take 20 mg by mouth Daily. Active Multiple Vitamins-Minera ls (CENTRUM SILVER PO) Take 1 tablet by mouth daily. Active ALPRAZolam (XANAX) 0.5 MG tablet Take 0.5 mg by mouth 2 (two) times a day as needed for anxiety or sleep. Active cetirizine (zyrTEC) 10 MG tablet Take 10 mg by mouth Daily. Active Active Problems Problem Noted Date Diagnosed Date Well female exam with routine gynecological exam 07/27/2016 Mild cervical dysplasia 07/27/2016 Diverticulitis of colon 02/23/2016 Hyperlipidemia 02/23/2016 Anxiety and depression 02/23/2016 Family History Medical History Relation Name Comments Heart attack Father Heart disease Other Heart disease Sister 1 Heart disease Sister 2 Relation Name Status Comments Father Mother Other Sister 1 Alive Sister 2 Alive Social History Tobacco Use Types Packs/Day Years Used Date Smoking Tobacco: Former Cigarettes 1 15 1 09/04/1996 - 07/05/2012 Smokeless Tobacco: Never Alcohol Use Standard Drinks/Week Comments Yes 2 (1 standard drink = 0.6 oz pur e alcohol) Abuse Screen Answer Date Recorded Unsafe at Home or Work/School Not on file Feels Threatened by Someone? Not on file 05/2023 Does Anyone Keep You from Co ntacting Others or Doint Things Outside the Home? Not on file 06/12/2023 Physical Sign of Abuse Present Not on file 1 Housing Stability Answer Date Recorded Current Living Arrangements Not on file 05/2023 Potentially Unsafe Housing Conditions Not on jessica e 06/12/2023 Family and Community Support Answer Eduardo e Recorded Help with Day-to-Day Activities Not on file 06/12/2023 Lonely or Isolated Not on file 06/12/2023 Employment Answer Date Recorded Do you want help finding or keeping work or a ahmet b? Not on file 06/12/2023 Disabilities Answer Date Recorded Concentrating, Remembering, or Making Decisions Difficulty Not on file 06/12/2023 Doing Errands Independently Difficulty Not on fi le 06/12/2023 Education Answer Date Recorded Help with school or training? Not on file Preferred Language Not on file 06/12/2023 Comments No Sex and Gender Information Value Date Recorded Sex Assigned at Not on file Legal Sex Female 10:17 AM EDT Gender Identity Not on file Sexual Orientation Not on file Last Filed Vital Signs Vital Sign Reading Time Taken Comments Blood Pressure 120/74 05/12/2022 11:00 AM EDT Pulse 95 05/12/2022 11:00 AM EDT Temperature 36.6 C (97.9 F) 07/27/2016 2:36 PM EST Respiratory Rate 14 07/27/2016 2:36 PM EST Oxygen Saturation 95% 05/12/2022 11:00 AM EDT Inhaled Oxygen Concentration - - Weight 91.6 kg (202 lb) 05/12/2022 11:00 AM EDT Height 180.3 cm (5' 11 ) 05/12/2022 11:00 AM EDT Body Mass Index 28.17 05/12/2022 11:00 AM EDT Plan of Treatment Health Maintenance Due Date Last Done Comments DXA SCAN 1955 LIPID PANEL 1955 TDAP/TD VACCINES (1 - Tdap) 1976 COLOGUARD 2002 COLON CANCER SCREENING 5 YEA R SIGMOIDOSCOPY 2002 COLONOSCOPY 2002 COL[address]AL CANCER SCREENING 2002 CT COLONOGRAPHY 2002 FECAL OCCULT BLOOD TEST 2002 FIT Testing (1 year) 2002 MAMMOGRAM 08/25/2017 08/25/2015, 04/24/2014 ANNUAL PHYSICAL 05/12/2022 HEPATITIS C SCREENING 05/12/2022 INFLUENZA VACCINE 04/04/2025 05/27/2022 COVID-19 Vaccine ( season) 05/05/202502/2021, 11/21/2020 ZOSTER VACCINE Completed 10/23/2019, 07/18/2019 Pneumococcal Vaccine 50+ Completed 04/14/2022 Procedures Procedure Name Priority Date/Time Associated Diagnosis Comments MAMMO DIAGNOSTIC BILATERAL W CAD Routine 08/25/2015 9:48 AM EST from Last 3 Months or Most Recently Relevant to Health Maintenance Results * Mammo diagnostic bilateral (08/25/2015 9:48 AM EST) Anatomical Region Laterality Modality Breast Bilateral Mammography 08/25/2015 9:48 AM EST Narrative 08/25/2015 11:40 AM EST EXAMINATION- BILATERAL DIAGNOSTIC DIGITAL MAMMOGRAM AND A FOCUSED LEFT BREAST ULTRASOUND CLINICAL INDICATION- 60-year-old patient presents for evaluation of a palpable mass she notes in the 6-00 periareolar region of her left breast. The patient has no reported family history of breast cancer. She is status post a prior benign excisional biopsy on the left. TECHNIQUE- Low dose full field digital breast tomosynthesis imaging was performed with 2D and 3D acquisitions. Prior to imaging, a triangular skin marker was placed over the palpable area of concern noted by the patient in the left breast. Also, a left MLO focal compression view was performed. Finally, ultrasound imaging targeted to the palpable area of concern on the left was performed. COMPARISON- 04/24/2014, 11/11/2013, 06/06/2013, 06/27/2012, 06/17/2011, 07/28/2009 FINDINGS- The breasts are heterogeneously dense, which may obscure small masses. Right breast- The fibroglandular pattern is stable. There is no evidence of mass, distortion or suspicious calcifications. Left breast- The palpable mass patient feels on the left corresponds to an approximately 3.0 cm lobulated isodense mass. The mass has obscured borders on the routine views but appears more circumscribed tomographically. No spiculated masses or suspicious calcifications are seen. A questionable area of architectural distortion in the posterior superior aspect of the left breast on the MLO view was not confirmed on additional 2-D/3-D combination focal compression imaging. Left breast ultrasound- To further evaluate the palpable mass noted by the patient in the left, ultrasound imaging targeted to the area was performed. In the 6-00 subareolar region there are some clustered cysts the largest of which measures 2.1 x 1.0 cm in size. The patient does state that the cysts are painful. IMPRESSION- 1. No mammographic abnormality noted in the right breast. 2. The palpable mass the patient feels in the left 6-00 periareolar region corresponds to clustered cysts as described above. The patient states these are painful and would like to undergo ultrasound guided aspiration. She is currently on aspirin therapy of which she says she is able to stop. We will ask the patient to hold aspirin for 5 days and she will be scheduled to return for ultrasound-guided aspiration. ACR BIRADS CATEGORY- IV, SUSPICIOUS RECOMMENDATION- Plan for ultrasound guided aspiration of cyst noted in the left breast as described above. CAD was utilized. The standard false-negative rate of mammography is between 10% and 25%. Complex patterns or increased breast density will markedly elevate the false-negative rate of mammography. A letter, in lay terminology, with the results of this exam was given to the patient at the time of the visit. Physician Order Ultrasound Guided Breast Biopsy Diagnosis- Abnormal Mammogram Reading Radiologist- JENNIFER BERGERON [facility] Radiologist- JENNIFER BERGERON Released Date Time- 08/25/15 2237 Staff Analyst- Criss Procedure Note Jennifer Alanis MD - 08/25/2015 EXAMINATION- BILATERAL DIAGNOSTIC DIGITAL MAMMOGRAM AND A FOCUSED LEFT BREAST ULTRASOUND CLINICAL INDICATION- 60-year-old patient presents for evaluation of a palpable mass she notes in the 6-00 periareolar region of her left breast. The patient has no reported family history of breast cancer. She is status post a prior benign excisional biopsy on the left. TECHNIQUE- Low dose full field digital breast tomosynthesis imaging was performed with 2D and 3D acquisitions. Prior to imaging, a triangular skin marker was placed over the palpable area of concern noted by the patient in the left breast. Also, a left MLO focal compression view was performed. Finally, ultrasound imaging targeted to the palpable area of concern on the left was performed. COMPARISON- 04/24/2014, 11/11/2013, 06/06/2013, 06/27/2012, 06/17/2011, 07/28/2009 FINDINGS- The breasts are heterogeneously dense, which may obscure small masses. Right breast- The fibroglandular pattern is stable. There is no evidence of mass, distortion or suspicious calcifications. Left breast- The palpable mass patient feels on the left corresponds to an approximately 3.0 cm lobulated isodense mass. The mass has obscured borders on the routine views but appears more circumscribed tomographically. No spiculated masses or suspicious calcifications are seen. A questionable area of architectural distortion in the posterior superior aspect of the left breast on the MLO view was not confirmed on additional 2-D/3-D combination focal compression imaging. Left breast ultrasound- To further evaluate the palpable mass noted by the patient in the left, ultrasound imaging targeted to the area was performed. In the 6-00 subareolar region there are some clustered cysts the largest of which measures 2.1 x 1.0 cm in size. The patient does state that the cysts are painful. IMPRESSION- 1. No mammographic abnormality noted in the right breast. 2. The palpable mass the patient feels in the left 6-00 periareolar region corresponds to clustered cysts as described above. The patient states these are painful and would like to undergo ultrasound guided aspiration. She is currently on aspirin therapy of which she says she is able to stop. We will ask the patient to hold aspirin for 5 days and she will be scheduled to return for ultrasound-guided aspiration. ACR BIRADS CATEGORY- IV, SUSPICIOUS RECOMMENDATION- Plan for ultrasound guided aspiration of cyst noted in the left breast as described above. CAD was utilized. The standard false-negative rate of mammography is between 10% and 25%. Complex patterns or increased breast density will markedly elevate the false-negative rate of mammography. A letter, in lay terminology, with the results of this exam was given to the patient at the time of the visit. Physician Order Ultrasound Guided Breast Biopsy Diagnosis- Abnormal Mammogram Reading Radiologist- JENNIFER BERGERON Releasing Radiologist- JENNIFER BERGERON Released Date Time- 08/25/15 1140 Staff Analyst- D.M.E. Mona Silva APRN IMG MAMMOGRAPHY ORDERA BLES Final Result from Last 3 Months or Most Recently Relevant to Health Maintenance Insurance MEDICARE A & B [employer] [facility] Advance Directives * Full Code (Latest Code Status on File) Date Activated Date Inactivated Comments 02/23/2016 4:32 PM 02/25/2016 5:49 PM Care Teams Certified Corporate Travel Executive Relationship Specialty Start Date End Date Gianfranco Wynn MD [facility] [place] [id number] [address] [facility] [place] [id number] PCP - General Adolescent Medicine 05/12/22
== END 2025-06-03 23:59 | disposition home or self-care (01) ==
LOC: RAD 09:45
PROVIDERS: PCP Nurse Practitioner Family; Visit Provider Nurse Practitioner Family
DX: N63.20 Unspecified lump in the left breast, unspecified quadrant (principal); R92.323 Mammographic fibroglandular density, bilateral breasts
CPT/HCPCS: 77062; 77066; G0279

== ENCOUNTER 2025-07-14 10:38 | Outpatient (CLI) | payer MEDICARE, OTHER, SELFPAY ==
--- NOTE | 2025-07-14 10:39 | CT_ITS ---
FINAL REPORT TECHNIQUE: Axial imaging of the chest was obtained without contrast. Reformatted images were also obtained and reviewed.This study was performed with techniques to keep radiation doses as low as reasonably achievable, (ALARA). Individualized dose reduction technique using automated exposure control or adjustment of mA and/or kV according to the patient's size were employed. CLINICAL HISTORY: PULMONARY NODULE SEEN ON CT COMPARISON: 01/16/2025 FINDINGS: There is no axillary adenopathy. There is no hilar or mediastinal mass or adenopathy. Heart size is normal. There is no pericardial or pleural effusion. Previously described right lower lobe nodule is no longer evident. There is right middle lobe scarring. Limited imaging of the upper abdomen demonstrates fatty infiltration of the liver. IMPRESSION: Resolution of right lower lobe nodule. No acute process. Reviewed, Interpreted and Dictated by Kenji Ayala MD Transcribed by Luisana Michael Authenticated and . [facility]
--- OUTSIDE RECORDS SUMMARY | 2025-07-14 10:59 | XMS_ITS | Clinical Summary ---
Author Organization Healthcare Address [address] [place] [address] Care Team Providers Care Sorting And Folding Supervisor Name Role Phone Gianfranco Wynn MD Primary Care Provider [phone] Family History Medical History Relation Name Comments [...] 2007 UKY-Zoster Vaccines (1 of 2) 2007 [id number] Vaccine (1 - 20 24-25 season) 2025 [...] age to complete this topic Care Teams Sorting And Folding Supervisor Relationship Specialty Start Date End Date Gianfranco Wynn MD [address] [place] [address] [place] [address] PCP - General 01/15/21
--- OUTSIDE RECORDS SUMMARY | 2025-07-14 10:59 | XMS_ITS | Clinical Summary ---
Author Organization [facility] Address [address] [place] [address] Care Team Providers Care Hospice Entrance Attendant Name Role Phone Gianfranco Wynn MD Primary Care Provider [phone] Allergies Active Allergy Reactions Criticality Noted Date [...] Diagnosis- Abnormal Mammogram Reading Radiologist- JENNIFER BERGERON [facility] Radiologist- JENNIFER BERGERON Released Date Time- 08/25/15 0050 Auditor/Quality- Criss Procedure Note Jennifer Alanis MD - [...] JENNIFER BERGERON Released Date Time- 08/25/15 1140 Auditor/Quality- D.M.E. Mona Silva APRN IMG MAMMOGRAPHY ORDERA BLES Final Result from Last 3 Months or Most Recently Relevant to Health Maintenance Insurance MEDICARE A & B [employer] [facility] Advance Directives * Full Code (Latest Code Status on File) Date Activated Date Inactivated Comments 02/23/2016 4:32 PM 02/25/2016 5:49 PM Care Teams Hospice Entrance Attendant Relationship Specialty Start Date End Date Gianfranco Wynn MD [facility] [place] [address] [address] [facility] [place] [address] PCP - General Adolescent Medicine 05/12/22
--- OUTSIDE RECORDS SUMMARY | 2025-07-14 10:59 | XMS_ITS | Encounter Summary ---
Author Organization [facility] Address [address] [place] [address] Care Team Providers Care Greaser Operator Name Role Phone Gianfranco Wynn MD Primary Care Provider [phone] Encounter Details Date Type Department Care Team (Late st Contact Info) Description 06/06/2013 Conversion Encounter [facility] HISTORICAL CONV [address] [place] [phone] Interface, See Report Social History Tobacco Use Types Packs/Day Years Used Date Smoking Tobacco: Never Assessed Comments Unknown Sex and Gender Information Value Date Recorded Sex Assigned at Not on file Legal Sex Female 10:17 AM EDT Gender Identity Not on file Sexual Orientation Not on file documented as of this encounter Progress Notes * Interface, See Report - 06/06/2013 12:00 AM EDT [facility] [address] [place], [place] [id number] Patient: RAVI MENDOZA MR #: : [id number] Date of Visit: 06/06/2013 Attending Physician: Maude Fregoso Dictated By: MAUDE FREGOSO Referring Physician: Diagnosis: OVEN DUMPER ANNUAL EXAM; H/O CERVICAL CANCER Allergies: TETRACYCLINE, ZOLOFT History of present illness: OVEN DUMPER ANNUAL EXAM; PT. DENIES ANY CURRENT OVEN DUMPER PROBLEMS. 58 yo female herefor annual exam [...] on filedocumented in this encounter Care Teams Greaser Operator Relationship Specialty Start Date End Date Gianfranco Wynn MD [address] [facility] [address] [place] [id number] PCP - General Adolescent Medicine 05/12/22 documented as of this encounter
== END 2025-07-14 23:59 | disposition home or self-care (01) ==
LOC: RAD 10:38
PROVIDERS: PCP Nurse Practitioner Family; Visit Provider Nurse Practitioner Family
DX: R91.1 Solitary pulmonary nodule (principal)
CPT/HCPCS: 71250